=== PATIENT | female | born 1950 | race Caucasian/White ===

== ENCOUNTER → 2018-09-19 13:27 | Outpatient (CLI) | payer OTHER, SELFPAY ==
[2018-09-19 13:42] LABS: Bacteria Urine None Seen; RBC Urine None Seen (0-5/HPF); WBC Urine None Seen (0-5/HPF)
[2018-09-19 14:51] LABS: Add Manual Diff / Slide Review NO; Basophils Absolute Auto 100 /uL (0-100); Basophils Percent Auto 1.2 % (0-2); Eosinophils Absolute Auto 100 /uL (0-450); Eosinophils Percent Auto 2.7 % (2-4); Hematocrit 32.5 % (36-46); Hemoglobin 10.8 g/dL (12.0-16.0); Lymphocytes Absolute Auto 800 /uL (1100-4500); Lymphocytes Percent Auto 16.6 % (25-40); Mean Corpuscular HGB Conc 33.1 % (30-36); Mean Corpuscular Volume 102.8 fL (80-100); Monocytes Absolute Auto 500 /uL (0-900); Monocytes Percent Auto 9.8 % (3-14); Neutrophils Absolute Auto 3200 /uL (1500-7000); Neutrophils Percent Auto 69.7 % (50-75); Platelet Count 228 X10^3/uL (150-400); Red Blood Cell Count 3.16 X10^6/uL (4.0-5.2); Red Cell Distribution Width 13.4 % (11.6-14.8); White Blood Cell Count 4.7 X10^3/uL (4.5-11.0)
[2018-09-19 16:34] LABS: Appearance Urine UA CLEAR; Bilirubin Urine UA NEGATIVE (NEGATIVE); Color Urine UA YELLOW; Glucose Urine UA NEGATIVE (Negative); Ketones Urine UA NEGATIVE (NEGATIVE); Leukocyte Esterase Urine UA NEGATIVE (NEGATIVE); Nitrite Urine UA NEGATIVE (Negative); Occult Blood Urine UA NEGATIVE (Negative); Protein Urine UA NEGATIVE (Negative); Urobilinogen Urine UA 0.2 E.U./dL (0.2); pH Urine UA 7.5 (4.5-8.0)
[2018-09-19 16:54] LABS: Culture Indicated Urine Cult Not Indicated
[2018-09-19 17:14] LABS: Blood Urea Nitrogen 39 mg/dL (7-17); Calcium 9.8 mg/dL (8.4-10.2); Carbon Dioxide 31 mmol/L (22-32); Chloride 103 mmol/L (98-107); Estimated Glomerular Filt Rate > 60.0 mL/min (>60); Glucose 108 mg/dL (80-110); HEMOLYSIS < 15 (0-50); Potassium 4.8 mmol/L (3.4-5.1); Sodium 141 mmol/L (137-145)
== END ==
PROVIDERS: Visit Provider Orthopaedic Surgery
DX: Z01.818 Encounter for other preprocedural examination (principal); Z01.812 Encounter for preprocedural laboratory examination; N39.9 Disorder of urinary system, unspecified; Z13.1 Encounter for screening for diabetes mellitus; R73.9 Hyperglycemia, unspecified
CPT/HCPCS: 36415; 80048; 81001; 83036; 85025; 93005

== ENCOUNTER → 2018-10-25 12:14 | Outpatient (CLI) | payer OTHER, SELFPAY ==
[2018-10-25 12:54] LABS: Hematocrit 30.2 % (36-46); Hemoglobin 10.2 g/dL (12.0-16.0); Mean Corpuscular HGB Conc 33.8 % (30-36); Mean Corpuscular Hemoglobin 34.5 PG (26-34); Platelet Count 278 X10^3/uL (150-400); Red Blood Cell Count 2.96 X10^6/uL (4.0-5.2); Red Cell Distribution Width 13.3 % (11.6-14.8); White Blood Cell Count 4.2 X10^3/uL (4.5-11.0)
[2018-10-25 13:28] LABS: Blood Urea Nitrogen 27 mg/dL (7-17); Calcium 9.8 mg/dL (8.4-10.2); Carbon Dioxide 32 mmol/L (22-32); Chloride 101 mmol/L (98-107); Estimated Glomerular Filt Rate > 60.0 mL/min (>60); Glucose 159 mg/dL (80-110); HEMOLYSIS < 15 (0-50); Potassium 4.1 mmol/L (3.4-5.1); Sodium 139 mmol/L (137-145)
== END ==
PROVIDERS: PCP Family Medicine; Visit Provider Physician Assistant Surgical
DX: Z01.818 Encounter for other preprocedural examination (principal)
CPT/HCPCS: 36415; 80048; 85027

== ENCOUNTER 2018-11-29 09:56 | Inpatient (IN) | payer OTHER, SELFPAY ==
[2018-11-16 09:50] VITALS: BMI 20.4
[2018-11-29] VITALS (14 sets, daily range): BP systolic 133–204; BP diastolic 57–98; PULSE 48–70; RESP 12–16; TEMP 35.8–37.2; O2SAT 94–100; BMI 20.8
--- NOTE | 2018-11-29 | DI.RAD.S_ITS ---
PROCEDURE: XR PELVIS 1-2V INDICATIONS: INNER OP TECHNIQUE: Intra-operative view of the pelvis and hip acquired. COMPARISON: [facility], CR, XR HIP W PEL IF DONE RT 2V, 11/29/2018, 16:22. FINDINGS: Bones: Intraoperative devices prior to placement of arthroplasty prostheses are in expected positions. No fractures or suspicious bony lesions. Soft tissues: Overlying surgical retractors are present, along with other intraoperative changes. IMPRESSION: Fluoroscopy guidance was provided intraoperatively for right hip arthroplasty. Dictated by: Gian Pandey M.D. on 11/29/2018 at 16:38 Approved by: Gian Pandey M.D. on 11/29/2018 at 16:38
--- NOTE | 2018-11-29 06:00 | DI.RAD.S_ITS ---
PROCEDURE: XR HIP W PEL IF DONE RT 2V INDICATIONS: post op films TECHNIQUE: AP pelvis and lateral view of the right hip acquired. COMPARISON: None. FINDINGS: Bones: Patient is status post right hip arthroplasty, with hardware components in expected positions. The hip joint appears congruent. The visualized bony structures appear intact. Soft tissues: Overlying postoperative changes are noted. No suspicious soft tissue densities. IMPRESSION: Post surgical changes from right total hip arthroplasty with anatomic right hip alignment. Dictated by: Gian Pandey M.D. on 11/29/2018 at 17:45 Approved by: Gian Pandey M.D. on 11/29/2018 at 17:45
[2018-11-29] MEDS: LACTATED RINGERS 1,000 ML 42 ML IV ×2 (10:30→15:50)
[2018-11-29] MEDS: VANCOMYCIN 1,000 MG/200 ML PIGGYBACK 200 MG IV (10:35)
[2018-11-29] MEDS: ACETAMINOPHEN 325 MG TABLET 975 MG PO ×2 (10:36→21:29)
[2018-11-29] MEDS: PREGABALIN 75 MG CAPSULE PO (10:37)
[2018-11-29] MEDS: CELECOXIB 200 MG CAPSULE PO (10:37)
--- NOTE | 2018-11-29 10:45 | PM.PREOP ---
Pre-operative Note Interval Note History & Physical reviewed/Exam performed by Physician: Yes Changes to H&P: No
--- NOTE | 2018-11-29 10:45 | PM.OP.1 ---
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 Non-operative management has failed and the patient has requested total hip replacement. The risks, benefits and alternatives to surgery were discussed with the patient prior to proceeding. Risks discussed included, but were not limited to, failure to relieve pain, leg length discrepancy, dislocation, stiffness, infection, nerve damage, deep venous thrombosis, pulmonary embolism, stroke, coma, heart attack, permanent paralysis and , as well as the potential need for eventual revision of the prosthetic. Surgeon: Alyse Flores [employer] Equipment Repairer: Haider Romano Anesthesia Type: General and Spinal Operative Notes Findings: Severe right hip osteoarthritis and avascular necrosis with severe fragmentation and collapse of the femoral head marked capsular synovitis with multiple fragments of the femoral head crumbled and impregnated in the capsule Closure Type: primary Specimen(s): none sent Prosthetic devices, grafts, tissues, transplants, or devices: Flores and Nephew size 7 standard offset anthology, 52 mm R3 cup, 52 x 36 mm liner, 36 by -3 femoral head Oxinium Estimated Blood Loss (mL): 250 Blood products transfused: none Procedure in detail: The patient was brought to the operating room. Patient was carefully positioned in the supine position. Time-out was performed and antibiotics were given. Anesthesia was induced. She was positioned in the on the table in order to allow hyperextension of the hip. The right lower extremities was prepped and draped in a standard sterile fashion. An anterior right hip incision was made 1 fingerbreadth lateral to the anterior superior iliac spine and extended distally towards the greater trochanter. Dissection was carried out through skin and subcutaneous tissues. The skin and subcutaneous tissues were carefully injected with Lidocaine with epi. Superficial hemostasis was achieved. The fascia over the tensor fascia davion was defined and incised with a knife. Two Allis clamps were used to grasp the fascia. Tensor fascia davion was retracted laterally. A gelpi retractor was placed. Dissection was carried out down along the neck. The circumflex vessels were carefully identified and cauterized with the Aqua Mantis. There was good visualization of the femoral neck. A Cobra was placed superior to the neck and the gluteus fibers were carefully stripped from that superior aspect of the capsule. A 2nd retractor was placed along the inferior aspect of the neck. The rectus insertion along the capsule was partially released. A 3rd retractor that was then gently placed over the rim of the acetabulum under the rectus. Capsule was carefully incised and released from the intertrochanteric line circumferentially superior to the mid sagittal line and inferiorly to the mid sagittal line until the lesser trochanter was palpable. A tag stitch was placed both in the superior and inferior limb of the capsular insertion. Along the acetabulum capsule was also released up to the mid sagittal 12:00 position. There was severe fragmentation of the femoral head. There was marked inflammation and thickening of the anterior capsule and the capsule was grossly and densely adherent to the femoral head and multiple multiple fragments of the head had broken off and were impregnated in the capsule. Dissection and mobilization was tedious due to the level of inflammation and the severe debris formation. A portion of the labrum was resected. A saw was used to perform an osteotomy at the level of the intertrochanteric line and the junction of the superior femoral neck leaving approximately 1 finger breath of residual inferior neck above the lesser trochanter. A 2nd cut was made along the femoral neck at the base of the head and a napkin ring of neck was removed. Corkscrew was placed in the femoral head and the head was removed after removing some fragmented residual head pieces as well as meticulously freeing the densely adherent capsule which had adhered along the neck portion as well as multiple fragments of the head. Retractors were then repositioned around the acetabulum. The acetabulum was significantly softened making dissection tedious and we were very cautious with our retractors to avoid injury to the residual somewhat deficient and quite soft acetabulum. Residual labrum was resected and additional osteophytes were removed. A reamer that was 4 mm below the templated size was placed by hand in the acetabulum and it was reamed to centralize the acetabulum. It was then reamed up to 2 under the templated size and fluoroscopy was brought in to confirm the position of the reaming and depth of reaming. Multiple additional fragments of femoral head were removed and any additional grossly abnormal capsule was carefully removed. I reamed 1 under the anticipated size. A trial cup was placed and noted that it was appropriately sized and fluoroscopy confirmed position and depth. The component was open and inserted without difficulty fluoroscopic imaging was used to confirm that the cup had been adequately seated and was well positioned. She had a very soft acetabulum and a supplemental screw was used to further stabilize the cup. The cup was noted to be stable. Neutral poly liner was placed. The cup was tested and noted to be stable. Attention was then directed to the femur. The femur was gently hyperextended additional capsular release was performed as needed in order to allow adequate visualization of the proximal femur with elevation of the femur. Patient was placed in a hyperextended slightly adducted position with maximum external rotation. Box osteotome was used to check for any residual neck as well as sclerotic bone along the trochanter. Fertile pepper was placed in the femur. Additional broaching was performed. Canal finder was used to determine the alignment of the canal and position. Size 1 broach was placed. The canal was then appropriately broached up to the templated size as long as there was adequate stability of the broach and serial advancement of the broach without excessive impingement. Specific attention was directed at avoiding varus attempting to direct the distal aspect of the broach more anteriorly and avoiding excessive anteversion. Trial reduction showed acceptable range of motion, good stability, no posterior impingement, restorationist of leg length and appropriate lateral shuck. I also hyperflexed the hip and checked that there was no impingement anteriorly and there was good stability with flexion, adduction and internal rotation. Marcaine and Exparel were injected. The stem was placed without difficulty. Repeat trial reduction and x-ray showed acceptable overall position, length, and no evidence of the femoral fracture. Final head was placed. Wound was meticulously irrigated with normal saline. The hip was reduced and additional Exparel and Marcaine were injected. The capsule was closed with interrupted nonabsorbable sutures. The fascia of the tensor was closed with interrupted and running Vicryl. No drain was placed. Any tensor fascia davion muscle that appeared to be contused or injured which was a minimal amount was carefully resected. Capsule around the tensor was injected with Exparel and Marcaine. The skin was closed with barbed stitches for the subcutaneous tissue and skin. We also used surgical glue. The wound was dressed sterilely. Brief Betadine soak was also used and was meticulously irrigated with normal saline. Patient was transferred to recovery room in satisfactory condition. Complications: none Condition: stable Disposition: Acute Care Plan for aftercare: The patient will be maintained on a standard total hip replacement protocol with weight bearing as tolerated and anterior hip precautions. The patient will receive Aspirin and sequential compression devices for DVT prophylaxis. The patient will be discharged home when safe for the home environment.
--- NOTE | 2018-11-29 10:54 | SUR.PREOP ---
SPOKE WITH DR. SALGADO REGARDING PT CURRENT WEIGHT IN REGARDS TO CURRENT ORDER FOR ANCEF [address] SALGADO CONTINUE WITH CURRENT PLAN FOR ANCEF 2 GRAMS. COMMUNICATED THIS WITH CIRCULATING RN.
--- NOTE | 2018-11-29 11:02 | SUR.PREOP ---
PT BROUGHT INSULIN FROM HOME. CALLED PHARMACY AND JENNIFER FROM PHARMACY CAME AND PICKED UP PT INSULIN.
[2018-11-29] MEDS: INSULIN ASPART 100 UNIT/ML 10ML VIAL SUBCUT (11:07)
--- NOTE | 2018-11-29 11:21 | SUR.PREOP ---
PT ADMINISTERED INSULIN HERSELF. PT OBSERVED TO ADMINISTER INSULIN IN LEFT LOWER ABDOMEN.
[2018-11-29] MEDS: CEFAZOLIN 2 GM/100 ML FROZ.PIGGY IV ×2 (11:45→20:16)
[2018-11-29] MEDS: BUPIVACAINE LIPOSOME 266 MG/20 ML VIAL INJ (12:52)
[2018-11-29] MEDS: POVIDONE-IODINE 15 ML, SODIUM CHLORIDE 0.9% 250 ML TOP (12:53)
[2018-11-29] MEDS: BUPIVACAINE 0.25% W/ EPI 30 ML VIAL 60 ML INJ (12:53)
[2018-11-29] MEDS: TRANEXAMIC ACID 1,000 MG VIAL 1000 MG INJ ×2 (12:55→15:57)
--- NOTE | 2018-11-29 13:07 | PC.NURSE ---
Day shift: Pt not on AC unit at this time
[2018-11-29] MEDS: LACTATED RINGERS 1,000 ML 125 ML IV (17:04)
[2018-11-29] MEDS: ONDANSETRON 4 MG/2 ML INJ IV ×2 (17:33→23:41)
--- NOTE | 2018-11-29 18:40 | PC.NURSE ---
Addendum entered by Liz Hanna R.N. 11/29/18 20:57: Pt resting at intervals. Continues w/some nausea w/ small emesis Dsg remains CDI Voiing per bedpan clear yellow urine. Stable post op course. Call light w/in reach, bed alarm on for pt safety. Continue w/plan of care. Original Note: Pt arrived from PACU at 1700. Awake/drowsy. Some nausea upon arrival, Zofran given. IVF infusing into RAC via pump as per orders. Call light w/in reach, bed alarm on for pt safety.
[2018-11-29] MEDS: METOCLOPRAMIDE 10 MG/2 ML INJ IV (18:54)
[2018-11-29] MEDS: LISINOPRIL 10 MG TABLET PO (19:00)
--- NOTE | 2018-11-29 19:47 | PM.HP.1 ---
History of Present Illness Date Patient Seen: 11/29/18 Time Patient Seen: 19:36 Chief complaint: 26424 RIGHT ANTERIOR KATHERINE Narrative: Ms. Melody Weems is a 68-year-old female patient with a history significant for diabetes, osteoporosis and severe right hip osteoarthritis who underwent a right total hip arthroplasty by Dr. Flores today. The hospitalist service has been asked to consult to assist in managing her diabetes. The patient has had increasing right hip pain with increasing debility for approximately the last year. She has failed conservative treatment and underwent a right total hip arthroplasty through an anterior approach today. Prior to the surgery the patient has been in good health with excellent management of her diabetes with her last hemoglobin A1c 09/19/2018 of 6.0. Her regimen includes Toujeo 11 of 13 units each evening and correctional lispro insulin. The patient has no associated complications of retinopathy neuropathy or nephropathy. At the time encounter the patient is awake and alert but complains of nausea. She has had undergone general anesthetic previously for elbow reconstruction following fall without complications. Postoperatively the patient was hypertensive with blood pressure up to 204/96 without history of hypertension. Is noted that the patient had markedly elevated BUN creatinine ratio preoperatively of 65 with preserved renal function with a creatinine of 0.6. At the time of encounter the patient's blood pressure is 192/89 with heart rate of 70, respirations 16 and oxygen saturation of 94% on air. She denies complaints of headaches or double vision does report mild dizziness which she attributes to her pain medication. She denies chest pain or palpitations and has no shortness of breath cough or wheezing. She has no abdominal tenderness but has had postoperative nausea and vomiting treated with Zofran. She has no complaints of diarrhea or dysuria. She indicates she was experimenting with [id number] stool softener prior to surgery. The patient has complained of bilateral leg swelling increasing through the day that will go down at night. Patient History Medical History Bradycardia (Acute) Dermatitis (Acute) Diabetes (Acute) Fracture of left clavicle (Acute) Raynaud's disease (Acute) Primary osteoarthritis of right hip (Chronic) Psoriasis (Chronic) Surgical History History of total right hip arthroplasty (Acute) Hx of elbow surgery (Acute) Social History household members: none Smoking Status: Never smoker alcohol intake: current Family & Social History Social History: household members none Prior Living Arrangements House Safety & Behavioral: Feels Safe in Current Yes Environment Been Physically Hurt or No Threatened By a Person Suicidal Ideation Description None Suicide Plan Description No Plan Tobacco & Substance use: Smoking Status Never smoker alcohol intake current alcohol intake frequency holiday/special occasion Substance Use Type does not use Comment: The patient currently lives alone in a two-story home with 15 steps to the upper floor and her bedroom. She is with her passing away 2 years ago. Smoking: Patient has never smoked. Alcohol: Patient denies alcohol consumption. Substance use: Patient denies recreation pharmaceuticals, herbal or cannabis use. Advanced directives: In direct conversation with the patient she expresses her wishes to be a FULL CODE but indicates her desire not to have long-term life support. She has advanced directives on file and designates Jerri Bach or her brother Bill to be surrogate decision makers. Meds Home Medications Medication Instructions Recorded Confirmed Type acetaminophen [Tylenol Extra 1,000 mg PO QID 11/16/18 11/29/18 History Strength] insulin glargine U-300 conc 11 - 13 unit SUBCUT QPM 11/16/18 11/29/18 History [Toujeo Max U-300 SoloStar] insulin lispro [Humalog KwikPen 2 - 3 unit SUBCUT TID 11/16/18 11/29/18 History Insulin] naproxen sodium [Aleve] 220 mg PO Q OTHER DAY 11/16/18 11/29/18 History melatonin 2 mg PO BEDTIME PRN 11/29/18 11/29/18 History Allergies Allergy/AdvReac Type Severity Reaction Status Date / Time No Known Drug Allergies Allergy Verified 11/29/18 10:28 Review of Systems Review of Systems All systems reviewed & are unremarkable except as noted in HPI and below Exam Vital Signs (past 8 hours): - 11/29/18 16:15 11/29/18 16:20 11/29/18 16:25 Temperature 97.0 F L Pulse Rate 52 L 49 L 49 L Respiratory Rate 12 12 12 Blood Pressure 133/57 L 135/65 137/65 Pulse Oximetry 96 99 96 11/29/18 16:30 11/29/18 16:40 11/29/18 16:50 Temperature 96.4 F L Pulse Rate 48 L 52 L 51 L Respiratory Rate 12 12 14 Blood Pressure 150/70 H 155/71 H 190/83 H Pulse Oximetry 97 97 94 11/29/18 17:20 11/29/18 17:36 11/29/18 17:50 Temperature 96.4 F L 96.5 F L Pulse Rate 56 L 54 L 65 Respiratory Rate 15 14 16 Blood Pressure 181/98 H 204/96 H Pulse Oximetry 95 94 96 11/29/18 18:50 Temperature 96.9 F L Pulse Rate 70 Respiratory Rate 16 Blood Pressure 192/89 H Pulse Oximetry 94 Oxygen Delivery Method Room Air Oxygen Flow Rate 0 Narrative Exam Narrative: GENERAL APPEARANCE: well developed, well nourished, in no acute distress. HEAD: Normocephalic, atraumatic, no scalp lesions. EYES: pupils equal, round, reactive to light and accommodation, sclera non-icteric, extraocular movement intact without nystagmus. EARS: normal external structures, no ear pain NOSE: sinuses non tender to percussion, no rhinorrhea ORAL CAVITY: Mucous membranes are dry without lesions or exudate, palate normal, tongue in midline. THROAT: Posterior pharynx without inflammation, uvula midline. NECK/THYROID: neck supple, no jugular venous distention, no carotid bruit, no thyromegaly, trachea midline. LYMPH NODES: no cervical or supraclavicular lymphadenopathy. SKIN: warm and dry, no visible lesions or rashes, good turgor. HEART: regular rate and rhythm, S1-S2 1/6 systolic murmur over right upper sternal border, no rubs or gallops, brisk capillary refill, trace bilateral pedal edema LUNGS: clear to auscultation bilaterally, no coarseness crackles or wheezing, no cough present CHEST: Symmetrical movement, no accessory muscle use, no pain to AP and lateral compression. ABDOMEN: Soft, flat without distention, no epigastric or abdominal tenderness on palpation, no guarding or peritoneal signs, no organomegaly, no flank tenderness, hypo active bowel tones. EXTREMITIES: Surgical dressing right anterior hip, distal CMS intact, bilateral upper extremity strength is 5/5 and symmetrical NEUROLOGIC: AAO x4, no focal neurologic deficits, cranial nerves II-XII grossly intact , motor strength normal upper and lower extremities, sensory exam intact to light monofilament touch, hearing grossly normal to speech. PSYCH: alert, cognitive function intact, good eye contact, appropriate with stable behavior Assessment & Plan Assessment & Plan narrative: The hospital services been asked to consult for medical management of the patient's type 2 diabetes following right anterior total hip replacement by Dr. Flores. 1. Chronic primary osteoarthritis right hip, present on admission. -patient admitted for for planned surgery following increased debilitation and pain right hip. -status post right total hip arthroplasty by Dr. Alyse Flores today. -patient with postoperative nausea effectively managed with Zofran. -follow-up care under the direction of Dr. Flores. -IV lactated Ringer's increased to 150 cc an hour for dehydration and BUN creatinine ratio of 45:1. 2. Type 2 diabetes, insulin-dependent, controlled, active. -patient with uncomplicated diabetes with no neuropathy retinopathy or nephropathy. -last hemoglobin A1c on 09/19/2018 was 6.0. -constant carbohydrate diet to advance as tolerated, patient with poor oral intake related to nausea. -fingerstick glucose monitoring a.c. HS. -basal insulin with Toujeo decreased to 7 units tonight with correctional insulin per low-dose scale. -monitor for signs and symptoms of hypoglycemia. 3. Acute Elevated blood pressure without diagnosis of hypertension, active. -at the time of consult the patient's blood pressure was 192/89 decreased from 204/96. -patient without history of hypertension is on no antihypertensive medications. -she has no complaints of headaches, chest pain, palpitations or shortness of breath. -patient is dehydrated, normal saline is increased 150 cc/hour with preserved renal function with a creatinine of 0.6 an elevated BUN of 27. -lisinopril 10 mg p.o. daily -will trend blood pressures. 4. Aortic systolic ejection murmur, chronic, active. -patient endorses history of being told she has heart murmur but has not had any follow-up cardiac evaluation. -no complaints of chest pain, palpitations or shortness of breath. -no report of orthopnea, history of bilateral pedal edema increasing through the day diminishing at night. -patient receiving lactated Ringer's at 150 cc/hour will monitor fluid balance and edema. -condition appears stable at this time, and may be followed up on outpatient basis. 5. Osteoporosis, chronic, presumed stable -patient is postmenopausal with osteoporosis by history, no DEXA scan report is available for review to identify severity. -recommended continuation of calcium and vitamin D3 supplementation. -additional management per primary care provider. Thank you Dr. Flores for the pleasure of consulting on this pleasant patient. Scores GCS [place] coma scale eye opening: Spontaneous [place] coma scale verbal response: Orientated [place] coma scale motor response: Obey commands Narendra coma scale total score: 15
[2018-11-29] MEDS: INSULIN ASPART 100 UNIT/ML INSULN PEN SUBCUT (20:22)
[2018-11-29] MEDS: ASPIRIN EC 81 MG TABLET PO (21:30)
--- NOTE | 2018-11-30 00:21 | PC.NURSE ---
2300- Pt POD#0 R total hip w/ Aquacel drsg CDI; bilat SED's in place' fluids running as ordered; cont SpO2 in place. Pt severely hypertensive when returned to floor from PACU, hospitalist consulting regarding this. BP stable at the start of this RN's shift. However, with movement in bed she has 1 episode of emesis. IV Zofran given and BG checked per pt's request. BG 248. Will cont to monitor. 0400- Pt cont to use bedpan through the night. IV abx hung per orders. No emesis through the night
[2018-11-30] MEDS: LACTATED RINGERS 1,000 ML 125 ML IV (01:34)
[2018-11-30 03:57] VITALS: BP 134/54; PULSE 62; RESP 15; TEMP 36.8; O2SAT 99
[2018-11-30] MEDS: CEFAZOLIN 2 GM/100 ML FROZ.PIGGY IV (04:11)
[2018-11-30] MEDS: INSULIN ASPART 100 UNIT/ML INSULN PEN SUBCUT ×6 (04:15→19:49)
[2018-11-30 06:18] LABS: Hematocrit 26.8 % (36-46)
[2018-11-30 06:25] LABS: Blood Urea Nitrogen 18 mg/dL (7-17); Calcium 8.7 mg/dL (8.4-10.2); Carbon Dioxide 29 mmol/L (22-32); Chloride 99 mmol/L (98-107); Estimated Glomerular Filt Rate > 60.0 mL/min (>60); Glucose 263 mg/dL (80-110); HEMOLYSIS < 15 (0-50); Potassium 3.8 mmol/L (3.4-5.1); Sodium 134 mmol/L (137-145)
[2018-11-30 07:20] VITALS: BP 140/61; PULSE 61; RESP 16; TEMP 37.3; O2SAT 97
--- NOTE | 2018-11-30 07:32 | PM.PNPO.1 ---
Subjective Date Patient Seen: 11/30/18 Time Patient Seen: 07:32 Interval history: Patient's pain is mild. Denies fever chills. No nausea vomiting. She slept fairly well through the night. Otherwise without complaints. Exam Vital Signs (past 8 hours): - 11/29/18 23:44 11/30/18 03:57 Temperature 98.0 F 98.2 F Pulse Rate 63 62 Respiratory Rate 16 15 Blood Pressure 150/75 H 134/54 L Pulse Oximetry 96 99 Oxygen Delivery Method Room Air Oxygen Flow Rate 0 Narrative Exam Narrative: Pleasant 68-year-old female resting comfortably in bed in no apparent distress. Right hip dressing is clean, dry and intact. Sensation grossly intact to light touch. Motor function is intact. Right leg is warm and dry. Objective Labs Result Diagrams: 11/30/18 06:00 11/30/18 06:00 Labs: Laboratory Results - last 24 hr 11/30/18 11/30/18 06:00 06:00 Hgb 9.0 L Hct 26.8 L Sodium 134 L Potassium 3.8 Chloride 99 Carbon Dioxide 29 BUN 18 H Creatinine 0.50 L Estimated GFR > 60.0 BUN/Creatinine Ratio 36.0 H Glucose 263 H Calcium 8.7 Assessment & Plan Post-op Postoperative Procedures Operation Date: 11/29/18 12:00 Actual Procedures Side Surgeon p Total Hip Arthroplasty/Anterior Approach Right Alyse Flores MD Postop day 1 status post anterior right total hip arthroplasty. Mobilize with physical therapy. Anterior hip precautions. Aspirin and SCDs for DVT prophylaxis. Hospitalist consulted for hypertension and diabetes management.
[2018-11-30] MEDS: ACETAMINOPHEN 325 MG TABLET 975 MG PO ×3 (08:13→19:43)
[2018-11-30] MEDS: OXYCODONE IR 5 MG TABLET PO (08:13)
[2018-11-30] MEDS: ASPIRIN EC 81 MG TABLET PO ×2 (08:14→19:46)
[2018-11-30] MEDS: LISINOPRIL 10 MG TABLET PO (08:15)
[2018-11-30] MEDS: DOCUSATE 100 MG CAPSULE PO ×2 (08:15→19:46)
--- NOTE | 2018-11-30 09:20 | PT.IIE ---
Current Diagnoses Unilateral primary osteoarthritis, right hip (11/29/18) Surgery Performed Operation Date: 11/29/18 12:00 Actual Procedures p Total Hip Arthroplasty/Anterior Approach(Right) - Alyse Flores MD Surgical History (Last Reviewed 11/29/18 @ 20:00 by KENISHA Márquez) History of total right hip arthroplasty (Acute) Hx of elbow surgery (Acute) Medical History (Last Reviewed 11/29/18 @ 20:00 by KENISHA Márquez) Bradycardia (Acute) Dermatitis (Acute) Diabetes (Acute) Fracture of left clavicle (Acute) Raynaud's disease (Acute) Primary osteoarthritis of right hip (Chronic) Psoriasis (Chronic) Physical Therapy Inpatient Evaluation/Re-Eval M1 PT/OT-IP Prior Functional Status Start: 11/30/18 12:51 Freq: NEEDED Status: Active Protocol: Document 11/30/18 09:20 AB (Rec: 11/30/18 13:27 AB [id number]) Medical Review Prior Functional Status Medical History Reviewed Yes Communication pt able to make needs known but with confusion Mobility and Gait pt stated that she is independent with all mobilities and ambulation without AD Social History Household Members none Living Arrangements House Number of Floors (Floors) Two Floors Number of Stairs To Enter/Railing? pt does not have any steps to enter pt has 15 steps to get to bedroom level; first half has bilateral rails and 2nd half has L rail ascending Home Environment High Toilet Walk in Shower Home Equipment Front Wheel Walker Straight Cane Shower Seat without Backrest Hand Held Shower Grab Bars In Shower Employment Status Retired Additional Social History Comment pt has walking sticks M2 PT-IP Current Condition Start: 11/30/18 12:51 Freq: NEEDED Status: Active Protocol: Document 11/30/18 09:20 AB (Rec: 11/30/18 13:27 AB [id number]) Physical Therapy Current Condition Current Condition Evaluation Date 11/30/18 Treatment Diagnosis s/p R KATHERINE anterior approach; difficulty in walking Onset Date 11/29/18 Precautions Anterior Hip Precautions No Hip Extension No Hip External Rotation Weight Bearing Status Weight Bearing Status Weight Bear as Tolerated M3 PT-IP Subjective Start: 11/30/18 12:51 Freq: NEEDED Status: Active Protocol: Document 11/30/18 09:20 AB (Rec: 11/30/18 13:27 AB [id number]) Subjective Physical Therapy Visit Type Type Initial Evaluation Visit Start Time 09:20 Visit Stop Time 10:15 Total Visit Minutes 55 Number of HEATING WORKER Visits 0 Physical Therapy Visit Comments Patient Comments pt agreed to do PT Therapy Pain Assessment Pain When Pain Assessed At Rest Pain Present Pain Present Pain Reported Location right hip Intensity 6 Scale Used Numeric (1 - 10) Pain Management Techniques Apply Cold Re-positioning Timing of Activity with Medications M4 PT-IP Mobility and Gait Start: 11/30/18 12:51 Freq: NEEDED Status: Active Protocol: Document 11/30/18 09:20 AB (Rec: 11/30/18 13:27 AB [id number]) PT-Bed Mobility Assessment Supine to Sit Supine to Sit Standby Assistance PT-Transfer Assessment Sit to and From Stand Sit to and from Stand Moderate Assistance 1 Person Assistance Use of Upper Extremities Equipment Transfer Assistive Device Bed Rail Front Wheeled Walker Orthotic/Prosthetic Devices or Brace: No Transfers Transfer Destination Chair Transfer Technique pt ambulated using FWW Transfer Ability Level of Assist Moderate Assistance 1 Person Assistance Use of Upper Extremities Comments Mobility Comments pt requires max cues with all tasks and to maintain hip precautions. pt is with confusion and requires step by step cues. Gait Assessment Gait Gait Assistance Required: Moderate Assistance 1 Person Assist Distance (Feet) 15 Able to Maintain Weight Bearing Status Yes During Gait Assistive Devices Assistive Device Gait Belt Front Wheeled Walker Orthotic/Prosthetic Devices or Brace: No Gait Deviations General Gait Pattern Antalgic Decreased Stride Length Decreased Feet Clearance Factors Limiting Gait Function Factors Limiting Gait Function Decreased Activity Tolerance Decreased Strength Difficulty Following Directions Pain Poor Balance Poor Safety Awareness PT-Balance Assessment Sitting Balance and Reactions Static Sitting Balance Ability Good Dynamic Sitting Balance Ability Good Standing Balance and Reactions Static Standing Balance Ability Fair Dynamic Standing Balance Ability Fair Device Used FWW M5 PT-IP Objective Assessments Start: 11/30/18 12:51 Freq: NEEDED Status: Active Protocol: Document 11/30/18 09:20 AB (Rec: 11/30/18 13:27 AB [id number]) Orientation Orientation/Cognition Level of Alertness Confusional State Orientation Name Age Year Place Situation Safety Awareness Decreased Safety Awareness Memory Description Short Term Impaired Nursing Home Impaired Gross Range of Motion Lower Extremity ROM Assessment Within Functional Limits Strength Lower Extremity Strength Assessment Right Impaired Hip 3/5 Knee 3/5 Coordination Assessment Gross Coordination Gross Coordination WNL Sensation Assessment Sensation Gross Sensation WNL Muscle Tone Muscle Tone WNL Yes M6 PT-IP Treatment Start: 11/30/18 12:51 Freq: NEEDED Status: Active Protocol: Document 11/30/18 09:20 AB (Rec: 11/30/18 13:27 AB [id number]) Physical Therapy Treatment Exercises Exercises Quad Sets Heel Slides Education Education Provided Precautions Weight Bearing Status Post-Op Packet Safety M7 PT-IP Assessment and Plan Start: 11/30/18 12:51 Freq: NEEDED Status: Active Protocol: Document 11/30/18 09:20 AB (Rec: 11/30/18 13:27 AB [id number]) PT Summary Assessment and Plan Potential Rehabilitation Potential Good Status of Condition at Evaluation Evolving Summary Impairments Pain ROM Strength Balance Coordination Sensation Tone Cognition Bed Mobility Transfers Gait Activity Tolerance Assessment Summary pt requiring mod A with mobility and max cues with all tasks. pt has decrease safety awareness and unable to maintain hip precautions. pt does not have much support at home and will only have somebody for the first 2-3 days to assist her. pt will need SNF rehab to improve mobility and independence. Goals Bed Mobility Goal Independent Transfer Goal Standby Assistance Front Wheeled Walker Gait Goal Standby Assistance Front Wheel Walker Gait Distance 150 Other Goals up/down 7 steps with bilateral rails + 8 steps with L rail ascending SBA Days to Meet Goals 5 Frequency of Treatment Frequency Of Treatment Twice a Day Treatment Plan Physical Therapy Treatment Plan Bed Mobility Training Transfer Training Gait Training Therapeutic Exercise Balance Retraining Post Op Education Discharge Planning Hot or Cold Pack Neuromuscular Re-ed Coordination Retraining Manual Therapy Other Recommendations and Next Treatment ambulation Focus Recommendations To Nursing Amount of Assist Needed 1 Person Assist Discharge Recommendations PT Discharge Recommendations SNF Rehab
--- NOTE | 2018-11-30 10:00 | PC.NURSE ---
Addendum entered by Jerri Guadalupe R.N. 11/30/18 14:17: PAIN/CONFUSION - discussed medications with pt for afternoon phys therapy, given 975mg po tylenol now for mobilization, pt will hold off oxycodone and prefers to have at bedtime, discussed naproxen and declines for now. Addendum entered by Jerri Guadalupe R.N. 11/30/18 14:06: MS - pt up indep w/bed alarm sounding, ambul into br and voided, did dribble floor on way in, pt needed direction, impulsive and continued ambul in room after advising pt to sit while wet floor cleaned, redirected pt to chair w/alarm set, phys therapy notified as pt wanted to ambul for mobilization. Original Note: AM NOTE - pt is alert, mildly anxious, states r hip discomfort 5-6 on scale 0/10 this am, + sensation feet, denies numbness, anterior aquacell r hip cdi, ice pack to hip, discussed pain medications, given scheduled tylenol, tony gen diet this am, denies nausea, given 5mg oxycodone after meal for mobilization.
[2018-11-30 11:47] VITALS: BP 126/61; PULSE 59; RESP 16; TEMP 37.1; O2SAT 98
--- NOTE | 2018-11-30 12:52 | PM.PN.1 ---
Subjective Date Patient Seen: 11/30/18 Interval history: Patient postop day #1 status post right hip replacement. She had postop severe hypertension and started on lisinopril. Blood pressures have substantially improved with last BP 126/61. Patient states blood pressures at home are typically below 120 systolic and she has not been told she needs blood pressure lowering medication. Her blood sugars are running substantially elevated in the 300 range postop on reduced dosage of her basal insulin. She is historically well controlled with the last hemoglobin A1c of 6.0%. In fact she gets sugars as low as 70 at home and her campus administrative assistant has mentioned to her she may be over controlled. Exam Vital Signs (past 8 hours): - 11/30/18 07:20 11/30/18 11:47 Temperature 99.1 F 98.8 F Pulse Rate 61 59 L Respiratory Rate 16 16 Blood Pressure 140/61 126/61 Pulse Oximetry 97 98 Oxygen Delivery Method Room Air Oxygen Flow Rate 0 Narrative Exam Narrative: General: Patient is alert, pleasant, well oriented, sitting in chair and in no acute distress Objective Labs Result Diagrams: 11/30/18 06:00 11/30/18 06:00 Labs: Laboratory Results - last 24 hr 11/30/18 11/30/18 06:00 06:00 Hgb 9.0 L Hct 26.8 L Sodium 134 L Potassium 3.8 Chloride 99 Carbon Dioxide 29 BUN 18 H Creatinine 0.50 L Estimated GFR > 60.0 BUN/Creatinine Ratio 36.0 H Glucose 263 H Calcium 8.7 Assessment & Plan Assessment & Plan narrative: This is a 68-year-old female status post elective right hip replacement with postop hyperglycemia and acute hypertension. 1. Type 2 diabetes, insulin-dependent, controlled, active -elevated glucose readings postop although tightly controlled at home -increase basal insulin to 12 units q.p.m., use NovoLog 4 units t.i.d. with meals, continue NovoLog low-dose sliding scale 2. Acute postop hypertension without diagnosis of chronic hypertension -blood pressures have improved -discontinue lisinopril started postop and continue monitoring blood pressures 3. Heart murmur -patient endorses history of being told she has heart murmur but has not had any follow-up cardiac evaluation. -consider outpatient echo 4. Osteoporosis, chronic, presumed stable -patient is postmenopausal with osteoporosis by history, no DEXA scan report is available for review to identify severity. -recommended continuation of calcium and vitamin D3 supplementation. -additional management per primary care provider.
--- NOTE | 2018-11-30 14:12 | CM.DANOTE ---
DCP/Assessment: Reviewed chart. Patient is a 68yr old female admitted to [facility] for right KATHERINE performed by Dr. Flores on 11-29-18. PCP is Yesenia Leo. Primary payor is 1)[facility]. Met with patient explained CM/SW role. Patient sitting in recliner, alert and oriented at time of visit. Patient reports that she hopes to go home at time of d/c. At this time SNF recommended POD#1. Patient anticipates that a few more days in the hospital and she will be strong enough to go home. Spoke with therapy re: the above. They are aware and plan to continue to work with patient closely. Patient has outpatient therapy set up on [facility]. Patient's friend will be helping her at time of d/c. Patient resides on [facility] and lives alone. Patient has friends that she reports can assist her at home. Patient has 15 stairs to get to second floor of residence. Patient hopes to stay on main floor. Patient agreeable for [employer] to provide her name to [facility] if SNF continues to be recommended. However, patient does prefer home. Plus patient's insurance rarely covers SNF for elective orthopedic surgery. P: Anticipate home. Patient will most likely remain hospitalized for a few more days so that she can go home when medically stable. Patient hopeful to leave on Wednesday. Patient will need priority boarding for return to [facility]. CM team to continue to follow closely. ADRIANNA King
--- NOTE | 2018-11-30 14:45 | PT.IPTN ---
Current Diagnoses Unilateral primary osteoarthritis, right hip (11/29/18) Surgery Performed Operation Date: 11/29/18 12:00 Actual Procedures p Total Hip Arthroplasty/Anterior Approach(Right) - Alyse Flores MD Physical Therapy Treatment Note M2 PT-IP Current Condition Start: 11/30/18 12:51 Freq: NEEDED Status: Active Protocol: Document 11/30/18 09:20 AB (Rec: 11/30/18 13:27 AB [id number]) Physical Therapy Current Condition Current Condition Evaluation Date 11/30/18 Treatment Diagnosis s/p R KATHERINE anterior approach; difficulty in walking Onset Date 11/29/18 Precautions Anterior Hip Precautions No Hip Extension No Hip External Rotation Weight Bearing Status Weight Bearing Status Weight Bear as Tolerated M3 PT-IP Subjective Start: 11/30/18 12:51 Freq: NEEDED Status: Active Protocol: Document 11/30/18 14:45 AB (Rec: 11/30/18 15:48 AB [id number]) Subjective Physical Therapy Visit Type Type Treatment Note Visit Start Time 14:45 Visit Stop Time 15:15 Total Visit Minutes 30 Number of RETOUCHER Visits 0 Physical Therapy Visit Comments Patient Comments pt agreeable to do PT Therapy Pain Assessment Pain Present Pain Present Pain Reported Location right hip Intensity 4 Scale Used Numeric (1 - 10) Pain Management Techniques Re-positioning Timing of Activity with Medications M4 PT-IP Mobility and Gait Start: 11/30/18 12:51 Freq: NEEDED Status: Active Protocol: Document 11/30/18 14:45 AB (Rec: 11/30/18 15:48 AB [id number]) Gait Assessment Gait Gait Assistance Required: Moderate Assistance Distance (Feet) 75 Able to Maintain Weight Bearing Status Yes During Gait Assistive Devices Assistive Device Gait Belt Front Wheeled Walker Orthotic/Prosthetic Devices or Brace: No Gait Deviations General Gait Pattern Antalgic Decreased Stride Length Decreased Feet Clearance Factors Limiting Gait Function Factors Limiting Gait Function Decreased Activity Tolerance Decreased Strength Difficulty Following Directions Pain Poor Balance Poor Safety Awareness Comments Gait Comments pt ambulated using FWW 75 + 30 ft requiring mod A and max cues for steadiness and to maintain hip precautions. Pt with (+) R knee buckling x 5 requiring mod A to recover. pt continues to require max A with all tasks and step by step instructions to maintain hip precautions and safety. M5 PT-IP Objective Assessments Start: 11/30/18 12:51 Freq: NEEDED Status: Active Protocol: Document 11/30/18 09:20 AB (Rec: 11/30/18 13:27 AB [id number]) Orientation Orientation/Cognition Level of Alertness Confusional State Orientation Name Age Year Place Situation Safety Awareness Decreased Safety Awareness Memory Description Short Term Impaired [facility] Impaired Gross Range of Motion Lower Extremity ROM Assessment Within Functional Limits Strength Lower Extremity Strength Assessment Right Impaired Hip 3/5 Knee 3/5 Coordination Assessment Gross Coordination Gross Coordination WNL Sensation Assessment Sensation Gross Sensation WNL Muscle Tone Muscle Tone WNL Yes M6 PT-IP Treatment Start: 11/30/18 12:51 Freq: NEEDED Status: Active Protocol: Document 11/30/18 14:45 AB (Rec: 11/30/18 15:48 AB [id number]) Physical Therapy Treatment Education Education Provided Precautions Weight Bearing Status Safety Other Treatments Other Treatment Performed pt remembers her hip precautions but has difficulty remembering and applying during mobility. M7 PT-IP Assessment and Plan Start: 11/30/18 12:51 Freq: NEEDED Status: Active Protocol: Document 11/30/18 14:45 AB (Rec: 11/30/18 15:48 AB [id number]) PT Summary Assessment and Plan Potential Rehabilitation Potential Fair Summary Impairments Pain ROM Strength Balance Coordination Sensation Tone Cognition Bed Mobility Transfers Gait Activity Tolerance Progress Towards Goals Slow Progress due to Activity Tolerance Slow Progress - Other Assessment Summary pt continues to require mod A with mobility and max cues with all tasks. pt with (+) R knee buckling during ambulation and requires constant cues to activate quad ms. pt will require SNF rehab to improve strength and functional independence. Goals Bed Mobility Goal Independent Transfer Goal Standby Assistance Front Wheeled Walker Gait Goal Standby Assistance Front Wheel Walker Gait Distance 150 Other Goals up/down 7 steps with bilateral rails + 8 steps with L rail ascending SBA Days to Meet Goals 5 Frequency of Treatment Frequency Of Treatment Twice a Day Treatment Plan Physical Therapy Treatment Plan Bed Mobility Training Transfer Training Gait Training Therapeutic Exercise Balance Retraining Post Op Education Discharge Planning Hot or Cold Pack Neuromuscular Re-ed Coordination Retraining Manual Therapy Other Recommendations and Next Treatment ambulation Focus Recommendations To Nursing Amount of Assist Needed 1 Person Assist Discharge Recommendations PT Discharge Recommendations SNF Rehab
[2018-11-30 16:30] VITALS: BP 142/59; PULSE 61; RESP 16; TEMP 37.1; O2SAT 98
--- NOTE | 2018-11-30 16:33 | PC.NURSE ---
Addendum entered by Liz Hanna R.N. 11/30/18 21:47: Pt resting quietly at this time. Pt w/episodes of confusion. States discomfort is 2/10 when moving about. Stable post op course. Call light w/in reach, bed alarm on for pt safety. Continue w/plan of care. Original Note: Pt sitting in chair, working w/OT. Denies discomfort at this time. [place] Dsg to anterior right hip CDI Lungs clear, SpO2 96% RA Pt tends to be impulsive at times. Call light w/in reach, chair alarm of for pt safety.
[2018-11-30] MEDS: INSULIN GLARGINE 12 EACH SUBCUT (17:03)
--- NOTE | 2018-11-30 17:37 | OT.IP.EVAL ---
Current Diagnoses Unilateral primary osteoarthritis, right hip (11/29/18) Surgery Performed Operation Date: 11/29/18 12:00 Actual Procedures p Total Hip Arthroplasty/Anterior Approach(Right) - Alyse Flores MD Past Medical History (Last Reviewed 11/29/18 @ 20:00 by KENISHA Márquez) Bradycardia (Acute) Dermatitis (Acute) Diabetes (Acute) Fracture of left clavicle (Acute) Raynaud's disease (Acute) Primary osteoarthritis of right hip (Chronic) Psoriasis (Chronic) Surgical History (Last Reviewed 11/29/18 @ 20:00 by KENISHA Márquez) History of total right hip arthroplasty (Acute) Hx of elbow surgery (Acute) Occupational Therapy Inpatient Evaluation/Re-Eval M1 PT/OT-IP Prior Functional Status Start: 11/30/18 16:38 Freq: NEEDED Status: Active Protocol: Document 11/30/18 16:44 [facility] (Rec: 11/30/18 17:36 [facility] [id number]) Medical Review Prior Functional Status Medical History Reviewed Yes Communication pt able to make needs known but with confusion Mobility and Gait pt stated that she is independent with all mobilities and ambulation without AD Activities of Daily Living and IADL's Pt states was completely independent with ADl's, IADL's , and driving. Social History Household Members none Living Arrangements House Number of Floors (Floors) Two Floors Number of Stairs To Enter/Railing? pt does not have any steps to enter pt has 15 steps to get to bedroom level; first half has bilateral rails and 2nd half has L rail ascending Home Environment High Toilet Walk in Shower Home Equipment Front Wheel Walker Straight Cane Shower Seat without Backrest Hand Held Shower Grab Bars In Shower Employment Status Retired Additional Social History Comment pt has walking sticks Pt states has an air mattress and cot or futon with frame that can be brought into the house so that she can stay on the main level. M2 OT-IP Current Condition Start: 11/30/18 16:38 Freq: Status: Active Protocol: Document 11/30/18 16:44 [facility] (Rec: 11/30/18 17:36 [facility] [id number]) Occupational Therapy Current Condition Current Condition Evaluation Date 11/30/18 Treatment Diagnosis S/p R KATHERINE anterior approach, weakness Diagnosis Onset Date 11/29/18 Post Operative Precautions Anterior Hip Precautions No Hip Extension No Hip External Rotation Weight Bearing Status Weight Bearing Status Weight Bear as Tolerated M3 OT- IP Subjective and Pain Start: 11/30/18 16:38 Freq: Status: Active Protocol: Document 11/30/18 16:44 [facility] (Rec: 11/30/18 17:36 [facility] [id number]) OT- Subjective Occupational Therapy Visit Type Type Initial Evaluation Visit Start Time 15:10 Visit Stop Time 16:10 Total Visit Minutes 60 Occupational Therapy Visit Comments Patient Comments Pt finishing up with PT, and agreeable to work with OT for OT eval. Patient/Caregiver Goals To be able to go home. OT Pain Assessment Pain When Pain Assessed During Mobility Pain Present Pain Present Pain Reported Location right hip Intensity 4 Scale Used Numeric (1 - 10) M4 OT- IP ADL's Start: 11/30/18 16:38 Freq: Status: Active Protocol: Document 11/30/18 16:44 [facility] (Rec: 11/30/18 17:36 [facility] [id number]) OT ADL-Grooming General Evaluation Grooming Ability Standby Assistance Contact Guard Assistance Areas Needing Assistance Retrieving/Set-up of Grooming Items Comments OT Grooming Comments CGA while standing at the sink with FWW for grooming needs. OT ADL-Oral Care General Eval Oral Care Ability Independent OT ADL-Dressing General Eval Lower Body Dressing Ability Moderate Assistance Areas Needing Assistance Underpants/Brief Socks Comments OT Dressing Comments MODA to help marla brief over her right foot and for right sock. Educated pt on LB AED. OT ADL-Toileting General Evaluation Toileting Ability MODAssistance Areas Needing Assistance Manage Clothing Devices Toileting Assistive Devices Grab Bars Comments OT Toileting Comments REBECCA for clothing management to help get the brief on. Also educated to marla right LE first. Pt having difficulty with her balance and needing CGA while sitting on the toilet to reach over to put on the brief . OT ADL-Bathing Comments OT Bathing Comments Pt states wants to shower tomorrow. M5 OT- IP IADL's Start: 11/30/18 16:38 Freq: Status: Active Protocol: Document 11/30/18 16:44 [facility] (Rec: 11/30/18 17:36 [facility] [id number]) OT-Instrumental Activities of Daily Living Home Safety Awareness Home Safety Comments Pt states was completely independent with all IADL needs prior to surgery. To continue to assess pt for home safety needs as currently pt is confused at times, decreased short term memory, and impulsive. M6 OT- IP Functional Cognition Start: 11/30/18 16:38 Freq: Status: Active Protocol: Document 11/30/18 16:44 [facility] (Rec: 11/30/18 17:36 [facility] [id number]) Cognitive Factors Limiting Selfcare Function Cognitive Ability Level of Alertness Alert Patient Orientation Name Year Day of Week Place Situation Attention Span Ability Capable of Focused Attention Unable to Sustain Attention Ability to Follow Commands Able to Follow One Step Commands Memory Description Short Term Impaired Safety Awareness Decreased Ability to Apply Precautions Underestimates Need for Assistance Problem Solving Ability Unable to Identify Errors Needs Assist to Identify Solutions Executive Function Ability Unable to Switch Focus Unable to Filter Distractions Unable to Remember Details Cognitive Tests SLUMS Pt's score may be affected my pain medications as she scored 16/30, normal is 27/30. Pt having trouble with short term memory, unable to recall 5 objects given, unable to recall information for two digit math equation, unable to draw a clock accurately, recall 4 digit number backwards, unable to neame greater than 15 animals in one minute, and recall one piece of information in a paragraph read. Pt not remembering that the call button in the TV remote and needing time to figure out how to turn on the TV. Right after discussing at length with pt to study, visual her precautions and techniques, pt states, I do not know what to do now? Cognitive Comments Cognitive Assessment Comments Pt needing concrete directions , step by step instructions, easily distracted, having difficulty getting her words out, and needing reminders for hip precautions. Pt feels that the pain medications, level of pain, and lack of sleep is effecting her thinking. Pt scored 182 seconds and needing MOD cues to complete [place] Making Part B which implies per [employer] a score of greater than 180seconds implies someone more likely to get into a car accident. [place] Making B looks at visual attention, task switching, speed of processing, executive function, and mental flexibility. OT- Vision and Hearing OT- Hearing Assessment OT- Hearing Assessment WFL OT- Vision Assessment Visual Acuity WFL M7 OT- IP Mobility and Balance Start: 11/30/18 16:38 Freq: Status: Active Protocol: Document 11/30/18 16:44 [facility] (Rec: 11/30/18 17:36 [facility] [id number]) OT-Transfer Assessment Sit to and From Stand Sit to and from Stand Contact Guard Assistance Transfers Transfer Ability Minimal Assistance Technique Transfer Destination Chair Toilet Transfer Technique Stand Step Pivot Devices Transfer Assistive Devices Gait Belt Front Wheeled Walker Comments Mobility Comments Pt needing step by step instructions for sit to stand and hip precaution for sequence while stepping forwards, backwards and turning. MAX vc to start and then needing MIN VC. OT- Balance Assessment Sitting Balance and Reactions Static Sitting Balance Ability Good Dynamic Sitting Balance Ability Fair Standing Balance and Reactions Static Standing Balance Ability Fair M8 OT- IP Objective Assessments Start: 11/30/18 16:38 Freq: Status: Active Protocol: Document 11/30/18 16:44 [facility] (Rec: 11/30/18 17:36 [facility] [id number]) OT Gross Range of Motion Upper Extremity Range of Motion Assessment Within Functional Limits OT Strength Comments Strength Comments BUE 4/5 OT- Coordination Assessment Comments Coordination Comments Arthritic changes in BUE, however able to use hands to marla socks. M9 OT- IP Assessment and Plan Start: 11/30/18 16:38 Freq: Status: Active Protocol: Document 11/30/18 16:44 [facility] (Rec: 11/30/18 17:36 [facility] [id number]) OT Summary Assessment and Plan Potential Rehabilitation Potential Good Analytic Complexity at Evaluation Low Summary OT Impairments Pain Strength Balance Functional Cognition Functional Mobility Grooming Dressing Toileting Bathing Toilet Transfers Shower Transfers Progress Towards Goals Slow Progress due to Pain Slow Progress due to Cognition Assessment Summary Pt low complexity and main barriers are steps, decreased cognition-however may be effected by pain medications, decreased safety awareness, and ability to incorporate hip precautions. Pt lives alone and would benefit from skilled rehab. Pt's right leg buckle at times and still not able to follow hip precautions. Goals Grooming Goal Independent Dressing Goal Independent Toileting Goal Independent Bathing Goal Standby Assistance Toilet Transfer Goal Independent Shower Transfer Goal Standby Assistance Patient/Caregiver Education Goal Demonstrate Post-Op Precautions Caregiver Independent Assisting Patient Days to Meet Goals 7 Frequency of Treatment Frequency Of Treatment Once a Day Treatment Plan OT Treatment Plan ADL Training Functional Cognition Training Functional Mobility Patient/Family Education Discharge Planning Other Treatment Recommendations and Next Shower, safety with hip Treatment Focus precautions, reassess cognition Discharge Recommendations OT Discharge Recommendations SNF Rehab Home Equipment Needs LB AED
[2018-11-30 19:35] VITALS: BP 136/63; PULSE 68; RESP 17; TEMP 36.9; O2SAT 98
[2018-11-30 23:46] VITALS: BP 141/61; PULSE 66; RESP 16; TEMP 36.9
--- NOTE | 2018-12-01 00:09 | PC.NURSE ---
2300- Pt POD#1 R total hip anterior approach. Tigistel drsg CDI; CMS intact; bilateral SED's in place. Pt denies pain at this time; moving to bathroom 1PA, needs ques for correct body posture & alignment. BG has not been controlled during this stay and pt states that's why she has seemed confused--not because of PO Oxycodone given to her earlier in the day. Will cont to monitor BG through the night per protocol. 0300- Pt up to bathroom through the night. CO no BM so Colace given early as well as Miralax. Small, hard, formed BM noted. 0610- Pt up to chair.
[2018-12-01] MEDS: INSULIN ASPART 100 UNIT/ML INSULN PEN SUBCUT ×8 (02:36→20:32)
[2018-12-01] MEDS: DOCUSATE 100 MG CAPSULE PO ×2 (03:24→20:31)
[2018-12-01] MEDS: POLYETHYLENE GLYCOL 3350 17 GM POWD.PACK PO (03:24)
[2018-12-01 03:39] VITALS: BP 140/83; PULSE 77; RESP 16; TEMP 36.5; O2SAT 93
[2018-12-01 07:30] VITALS: BP 129/58; PULSE 59; RESP 15; TEMP 36.9; O2SAT 99
[2018-12-01] MEDS: ASPIRIN EC 81 MG TABLET PO ×2 (08:00→20:31)
[2018-12-01] MEDS: ACETAMINOPHEN 325 MG TABLET 975 MG PO ×3 (08:00→20:31)
--- NOTE | 2018-12-01 09:17 | PM.PNPO.1 ---
Subjective Date Patient Seen: 12/01/18 Time Patient Seen: 09:17 Interval history: Patient's pain is mild. Denies fever chills. No nausea vomiting. She took too short walks yesterday in the room with physical therapy. She has assistance at home available tomorrow. Patient does live alone. Exam Vital Signs (past 8 hours): - 12/01/18 03:39 12/01/18 07:30 Temperature 97.7 F 98.5 F Pulse Rate 77 59 L Respiratory Rate 16 15 Blood Pressure 140/83 129/58 L Pulse Oximetry 93 99 Oxygen Delivery Method Room Air Oxygen Flow Rate 0 Narrative Exam Narrative: 68-year-old female sitting in bedside chair in no apparent distress. Right hip dressing is clean, dry and intact. Neurovascular status is intact to the right distal lower extremity. Objective Labs Result Diagrams: 11/30/18 06:00 11/30/18 06:00 Assessment & Plan Post-op Postoperative Procedures Operation Date: 11/29/18 12:00 Actual Procedures Side Surgeon p Total Hip Arthroplasty/Anterior Approach Right Alyse Flores MD Patient has been slow to mobilize with physical therapy. She will work with physical therapy today. Anterior hip precautions. She has assistance at home and a ride home who isn't available until tomorrow. Plan is to discharge home tomorrow if stable per hospitalist. Appreciate hospitalist assistance managing diabetes and hypertension.
--- NOTE | 2018-12-01 09:31 | PC.NURSE ---
Addendum entered by Jerri Guadalupe R.N. 12/01/18 14:33: MS/GI/PAIN - up fww, ambul in room after in br w/void and soft bm, states r hip discomfort 4 on scale 0/10, ret to chair and set chair alarm, given 975mg po tylenol for afternoon mobilization with phys therapy, states providing adequate relief. Addendum entered by Jerri Guadalupe R.N. 12/01/18 11:20: MS/PAIN - tony shower w/ OT, states earlier tylenol providing adequate relief, declines addl medications, ret to chair w/alarm set. Original Note: AM NAOTE - pt up to chair for breakfast, chair alarm set, states had good night, discussed pain mgt, r hip 6 on scale 0/10 when I move, prefers to continue with tylenol and declines narcotic or naproxen this am, tony diet, had formed bm during night, discussed stool softeners and laxatives for home, pt does repeat same questions at times.
[2018-12-01 11:00] VITALS: BP 125/62; PULSE 61; RESP 16; TEMP 37; O2SAT 99
--- NOTE | 2018-12-01 11:04 | PT.IPTN ---
Current Diagnoses Unilateral primary osteoarthritis, right hip (11/29/18) Surgery Performed Operation Date: 11/29/18 12:00 Actual Procedures p Total Hip Arthroplasty/Anterior Approach(Right) - Alyse Flores MD Physical Therapy Treatment Note M2 PT-IP Current Condition Start: 11/30/18 12:51 Freq: NEEDED Status: Active Protocol: Document 11/30/18 09:20 AB (Rec: 11/30/18 13:27 AB [id number]) Physical Therapy Current Condition Current Condition Evaluation Date 11/30/18 Treatment Diagnosis s/p R KATHERINE anterior approach; difficulty in walking Onset Date 11/29/18 Precautions Anterior Hip Precautions No Hip Extension No Hip External Rotation Weight Bearing Status Weight Bearing Status Weight Bear as Tolerated M3 PT-IP Subjective Start: 11/30/18 12:51 Freq: NEEDED Status: Active Protocol: Document 12/01/18 10:57 SA (Rec: 12/01/18 11:04 SA [id number]) Subjective Physical Therapy Visit Type Type Treatment Note Visit Start Time 10:15 Visit Stop Time 10:45 Total Visit Minutes 30 Number of FOOD SERVICE Visits 1 Physical Therapy Visit Comments Patient Comments Pt up in chair, agreeable to PT. Therapy Pain Assessment Pain When Pain Assessed During Mobility Pain Present Pain Present Pain Reported Location right hip Intensity 5 Scale Used Numeric (1 - 10) Pain Management Techniques Re-positioning Timing of Activity with Medications M4 PT-IP Mobility and Gait Start: 11/30/18 12:51 Freq: NEEDED Status: Active Protocol: Document 12/01/18 10:57 SA (Rec: 12/01/18 11:04 SA [id number]) PT-Transfer Assessment Sit to and From Stand Sit to and from Stand Contact Guard Assistance Minimal Assistance 1 Person Assistance Equipment Transfer Assistive Device Gait Belt Front Wheeled Walker Orthotic/Prosthetic Devices or Brace: No Transfers Transfer Destination Chair Transfer Technique Stand Step Pivot Transfer Ability Level of Assist Standby Assistance Contact Guard Assistance 1 Person Assistance Comments Mobility Comments CGA-Min A for transfers, cues for safety and precautions. Gait Assessment Gait Gait Assistance Required: Contact Guard Assist 1 Person Assist Distance (Feet) 160 Able to Maintain Weight Bearing Status Yes During Gait Assistive Devices Assistive Device Gait Belt Front Wheeled Walker Orthotic/Prosthetic Devices or Brace: No Gait Deviations General Gait Pattern Antalgic Decreased Stride Length Decreased Feet Clearance Factors Limiting Gait Function Factors Limiting Gait Function Decreased Activity Tolerance Decreased Strength Difficulty Following Directions Pain Poor Balance Poor Safety Awareness Comments Gait Comments Gait training in room/pantoja for 80 + 80 feet with step to gait pattern and cues for precautions. Focus on doyle gluts/quads with gait. M5 PT-IP Objective Assessments Start: 11/30/18 12:51 Freq: NEEDED Status: Active Protocol: Document 11/30/18 09:20 AB (Rec: 11/30/18 13:27 AB [id number]) Orientation Orientation/Cognition Level of Alertness Confusional State Orientation Name Age Year Place Situation Safety Awareness Decreased Safety Awareness Memory Description Short Term Impaired Mcfp Impaired Gross Range of Motion Lower Extremity ROM Assessment Within Functional Limits Strength Lower Extremity Strength Assessment Right Impaired Hip 3/5 Knee 3/5 Coordination Assessment Gross Coordination Gross Coordination WNL Sensation Assessment Sensation Gross Sensation WNL Muscle Tone Muscle Tone WNL Yes M6 PT-IP Treatment Start: 11/30/18 12:51 Freq: NEEDED Status: Active Protocol: Document 12/01/18 10:57 SA (Rec: 12/01/18 11:04 [id number]) Physical Therapy Treatment Exercises Exercises Ankle Pumps Gluteal Sets Quad Sets Heel Slides Education Education Provided Precautions Weight Bearing Status Safety Other Treatments Other Treatment Performed Improving recall of hip precautions during mobility and safe use of FWW. M7 PT-IP Assessment and Plan Start: 11/30/18 12:51 Freq: NEEDED Status: Active Protocol: Document 12/01/18 10:57 SA (Rec: 12/01/18 11:04 [id number]) PT Summary Assessment and Plan Summary Assessment Summary Pt progressing today with improving mobility and recall of precautions. Frequency of Treatment Frequency Of Treatment Twice a Day Treatment Plan Physical Therapy Treatment Plan Bed Mobility Training Transfer Training Gait Training Therapeutic Exercise Balance Retraining Post Op Education Discharge Planning Hot or Cold Pack Neuromuscular Re-ed Coordination Retraining Manual Therapy Other Recommendations and Next Treatment ambulation Focus Recommendations To Nursing Amount of Assist Needed 1 Person Assist Discharge Recommendations PT Discharge Recommendations Home with Assistance SNF Rehab
--- NOTE | 2018-12-01 11:29 | PM.PN.1 ---
Subjective Date Patient Seen: 12/01/18 Interval history: Postop day 2. Right hip replacement. BP's improving and in normal range off of lisinopril. Blood sugars improving, last CBG 270. Exam Vital Signs (past 8 hours): - 12/01/18 03:39 12/01/18 07:30 12/01/18 11:00 Temperature 97.7 F 98.5 F 98.6 F Pulse Rate 77 59 L 61 Respiratory Rate 16 15 16 Blood Pressure 140/83 129/58 L 125/62 Pulse Oximetry 93 99 99 Oxygen Delivery Method Room Air Oxygen Flow Rate 0 Narrative Exam Narrative: General: Pleasant female, NAD Objective Labs Result Diagrams: 11/30/18 06:00 11/30/18 06:00 Assessment & Plan Assessment & Plan narrative: 1. Type 2 diabetes, insulin-dependent, controlled, active -elevated glucose readings postop are improving, tightly controlled at home with A1c 6.0 -increase basal insulin to 14 units q.p.m., continue NovoLog 4 units t.i.d. with meals, continue NovoLog low-dose sliding scale 2. Acute postop hypertension without diagnosis of chronic hypertension -blood pressures have improved and in normal range -previously discontinued lisinopril started postop 3. Heart murmur -patient endorses history of being told she has heart murmur but has not had any follow-up cardiac evaluation. -consider outpatient echo 4. Osteoporosis, chronic, presumed stable -patient is postmenopausal with osteoporosis by history, no DEXA scan report is available for review to identify severity. -recommended continuation of calcium and vitamin D3 supplementation. -additional management per primary care provider. Patient is medically stable from hospitalist standpoint and can be discharged on her routine insulin regimen. She does not appear to need blood pressure lowering medication. At this time, we are signing off but available to see patient again if need arises.
--- NOTE | 2018-12-01 13:07 | OT.IP.TRT ---
Current Diagnoses Unilateral primary osteoarthritis, right hip (11/29/18) Surgery Performed Operation Date: 11/29/18 12:00 Actual Procedures p Total Hip Arthroplasty/Anterior Approach(Right) - Alyse Flores MD Occupational Therapy Treatment Note M2 OT-IP Current Condition Start: 11/30/18 16:38 Freq: Status: Active Protocol: Document 11/30/18 16:44 [facility] (Rec: 11/30/18 17:36 [facility] [id number]) Occupational Therapy Current Condition Current Condition Evaluation Date 11/30/18 Treatment Diagnosis S/p R KATHERINE anterior approach, weakness Diagnosis Onset Date 11/29/18 Post Operative Precautions Anterior Hip Precautions No Hip Extension No Hip External Rotation Weight Bearing Status Weight Bearing Status Weight Bear as Tolerated M3 OT- IP Subjective and Pain Start: 11/30/18 16:38 Freq: Status: Active Protocol: Document 12/01/18 12:51 [facility] (Rec: 12/01/18 13:07 [facility] [id number]) OT- Subjective Occupational Therapy Visit Type Type Treatment Note Visit Start Time 09:10 Visit Stop Time 10:05 Total Visit Minutes 55 Occupational Therapy Visit Comments Patient Comments Pt wanting to shower. OT Pain Assessment Pain When Pain Assessed At Rest Pain Present Pain Present Denied Pain M4 OT- IP ADL's Start: 11/30/18 16:38 Freq: Status: Active Protocol: Document 12/01/18 12:51 [facility] (Rec: 12/01/18 13:07 [facility] [id number]) OT ADL-Dressing General Eval Lower Body Dressing Ability Standby Assistance Comments OT Dressing Comments SBA while donning and doffing brief and socks. reminders not to cross RLE and best to prop right foot up on stool to marla /doff socks. OT ADL-Toileting General Evaluation Toileting Ability Standby Assistance Devices Toileting Assistive Devices Grab Bars Comments OT Toileting Comments Pt able to do all toilet with SBA and occasional reminders for hip precautions. OT ADL-Bathing Bathing Type Bathing Type Shower General Evaluation Bathing Ability Minimal Assistance Comments OT Bathing Comments Guido to help wash her back and vc for safety to be not externally rotate if having to turn to the left and take smaller steps. Best for pt to have someone assist her for showers at home. M5 OT- IP IADL's Start: 07/10/19 16:38 Freq: Status: Active Protocol: Document 11/30/18 16:44 [facility] (Rec: 11/30/18 17:36 [facility] [id number]) OT-Instrumental Activities of Daily Living Home Safety Awareness Home Safety Comments Pt states was completely independent with all IADL needs prior to surgery. To continue to assess pt for home safety needs as currently pt is confused at times, decreased short term memorry, and impulsive. M6 OT- IP Functional Cognition Start: 11/30/18 16:38 Freq: Status: Active Protocol: Document 12/01/18 12:51 [facility] (Rec: 12/01/18 13:07 [facility] [id number]) Cognitive Factors Limiting Selfcare Function Cognitive Ability Level of Alertness Alert Patient Orientation Name Year Day of Week Place Situation Attention Span Ability Capable of Focused Attention Unable to Sustain Attention Ability to Follow Commands Able to Follow One Step Commands Memory Description Short Term Impaired Safety Awareness Decreased Ability to Apply Precautions Underestimates Need for Assistance Problem Solving Ability Unable to Identify Errors Needs Assist to Identify Solutions Executive Function Ability Unable to Switch Focus Unable to Filter Distractions Unable to Remember Details Cognitive Tests SLUMS When asked to recall 5 words again today, still unable to recall any after 3 minutes. Cognitive Comments Cognitive Assessment Comments Pt thinking better and 90 % for all home safety situations , however has intermittent episodes of confusion. Therapist placed plastic glove to cover IV site to prevent it from getting wet. After a few minutes, pt asked therapist, what is this on my arm. In addition pt able to incorporate hip precautions initially and then forgetting and needing cues to take smaller steps. M7 OT- IP Mobility and Balance Start: 11/30/18 16:38 Freq: Status: Active Protocol: Document 12/01/18 12:51 [facility] (Rec: 12/01/18 13:07 [facility] [id number]) OT-Transfer Assessment Sit to and From Stand Sit to and from Stand Contact Guard Assistance Transfers Transfer Ability Contact Guard Assistance Technique Transfer Destination Chair Shower Stall Toilet Transfer Technique Stand Step Pivot Devices Transfer Assistive Devices Gait Belt Front Wheeled Walker Comments Mobility Comments Pt doing better to recall sequence to stand and which foot to move first during walking with FWW. However pt easily distracted and then forgets her hip precautions. OT- Balance Assessment Sitting Balance and Reactions Static Sitting Balance Ability Normal Dynamic Sitting Balance Ability Good Standing Balance and Reactions Static Standing Balance Ability Good M8 OT- IP Objective Assessments Start: 11/30/18 16:38 Freq: Status: Active Protocol: Document 11/30/18 16:44 [facility] (Rec: 11/30/18 17:36 [facility] [id number]) OT Gross Range of Motion Upper Extremity Range of Motion Assessment Within Functional Limits OT Strength Comments Strength Comments BUE 4/5 OT- Coordination Assessment Comments Coordination Comments Arthritic changes in BUE, however able to use hands to marla socks. M9 OT- IP Assessment and Plan Start: 11/30/18 16:38 Freq: Status: Active Protocol: Document 12/01/18 12:51 [facility] (Rec: 12/01/18 13:07 [facility] [id number]) OT Summary Assessment and Plan Potential Rehabilitation Potential Good Analytic Complexity at Evaluation Low Summary OT Impairments Pain Strength Balance Functional Cognition Functional Mobility Grooming Dressing Toileting Bathing Toilet Transfers Shower Transfers Progress Towards Goals Slow Progress due to Cognition Assessment Summary Main deficit for pt is stairs and functional cognition and inconsistent to incorporate hip precautions. Pt to have friend stay with her and then another person to assist the next day or so. It is highly recommended that pt go to skilled rehab for short stay to continue to train and re- train and practice with pt for all ADl and functional mobility needs. Goals Grooming Goal Independent Dressing Goal Independent Toileting Goal Independent Bathing Goal Standby Assistance Toilet Transfer Goal Independent Shower Transfer Goal Standby Assistance Patient/Caregiver Education Goal Demonstrate Post-Op Precautions Caregiver Independent Assisting Patient Days to Meet Goals 6 Frequency of Treatment Frequency Of Treatment Once a Day Treatment Plan OT Treatment Plan ADL Training Functional Cognition Training Functional Mobility Patient/Family Education Discharge Planning Other Treatment Recommendations and Next Safety with hip precautions. 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
[2018-12-01 15:38] VITALS: BP 133/59; PULSE 65; RESP 18; TEMP 37.1; O2SAT 97
--- NOTE | 2018-12-01 15:48 | PC.NURSE ---
Addendum entered by Leslie Montalvo R.N. 12/01/18 22:28: Blood sugars remain elevated. Insulin as per emar. ADA diet reviewed. Tylenol only for pain 5/10. Bed alarm as pt can be impulsive in attempting out of bed without calling for staff assistance. BL calf scd's in place. Original Note: Pt has ambulated twice around [employer] [facility] with P.T. while shift report took place. Now up in recliner awake and alert. Denies pain to right hip @ rest. States pain 5.5/10 with ambulation. Admits to full sensation to BL LE's. Able to move all extremities independently. Denies nausea. Admits to urinary urgency, but denies burning with urination. Brief in place. Chair alarm in place and instructed to call prior to attempting movement from chair. Pt verbalizes understanding and agreement.
--- NOTE | 2018-12-01 16:16 | PT.IPTN ---
Current Diagnoses Unilateral primary osteoarthritis, right hip (11/29/18) Surgery Performed Operation Date: 11/29/18 12:00 Actual Procedures p Total Hip Arthroplasty/Anterior Approach(Right) - Alyse Flores MD Physical Therapy Treatment Note M2 PT-IP Current Condition Start: 11/30/18 12:51 Freq: NEEDED Status: Active Protocol: Document 11/30/18 09:20 [facility] (Rec: 11/30/18 13:27 AB [id number]) Physical Therapy Current Condition Current Condition Evaluation Date 11/30/18 Treatment Diagnosis s/p R KATHERINE anterior approach; difficulty in walking Onset Date 11/29/18 Precautions Anterior Hip Precautions No Hip Extension No Hip External Rotation Weight Bearing Status Weight Bearing Status Weight Bear as Tolerated M3 PT-IP Subjective Start: 11/30/18 12:51 Freq: NEEDED Status: Active Protocol: Document 12/01/18 16:06 [facility] (Rec: 12/01/18 16:16 SA [id number]) Subjective Physical Therapy Visit Type Type Treatment Note Visit Start Time 14:56 Visit Stop Time 15:25 Total Visit Minutes 29 Number of ASSOCIATE JUSTICE Visits 2 Physical Therapy Visit Comments Patient Comments Pt up in chair, agreeable to PT. Therapy Pain Assessment Pain When Pain Assessed During Mobility Pain Present Pain Present Pain Reported Location right hip Intensity 3 Scale Used Numeric (1 - 10) Pain Management Techniques Re-positioning Timing of Activity with Medications M4 PT-IP Mobility and Gait Start: 11/30/18 12:51 Freq: NEEDED Status: Active Protocol: Document 12/01/18 16:06 SA (Rec: 12/01/18 16:16 SA [id number]) PT-Transfer Assessment Sit to and From Stand Sit to and from Stand Contact Guard Assistance 1 Person Assistance Equipment Transfer Assistive Device Gait Belt Front Wheeled Walker Orthotic/Prosthetic Devices or Brace: No Transfers Transfer Destination Chair Transfer Technique Stand Step Pivot Transfer Ability Level of Assist Standby Assistance Contact Guard Assistance 1 Person Assistance Comments Mobility Comments Pt demonstrates improving safety with transfers, maintains precautions well during txs. Gait Assessment Gait Gait Assistance Required: Standby Assistance Contact Guard Assist 1 Person Assist Distance (Feet) 300 Able to Maintain Weight Bearing Status Yes During Gait Assistive Devices Assistive Device Gait Belt Front Wheeled Walker Orthotic/Prosthetic Devices or Brace: No Gait Deviations General Gait Pattern Antalgic Decreased Stride Length Decreased Feet Clearance Factors Limiting Gait Function Factors Limiting Gait Function Decreased Activity Tolerance Decreased Strength Difficulty Following Directions Pain Poor Balance Poor Safety Awareness Comments Gait Comments Gait training in [place]antoja with FWW /SBA-CGA for 150 feet x 2 with cues for slowing down and maintaining step to gait pattern. Pt tends to get distracted and forget. Stair Climbing Assessment Evaluation Level of Assist On Stairs Contact Guard Assistance 1 Person Assistance Devices Stair Climbing Assistive Devices Left Railing Right Railing Technique/Endurance Stair Climbing Direction Ascend and Descend Stair Climbing Technique Step to Step Number of Steps Climbed 3 Stair Climbing Set # Repetitions (reps) 2 Comments Stair Climbing Comments Pt needs cues for safe technique and maintaining precautions, step to gait with use of B rails. M5 PT-IP Objective Assessments Start: 11/30/18 12:51 Freq: NEEDED Status: Active Protocol: Document 11/30/18 09:20 [facility] (Rec: 11/30/18 13:27 AB [id number]) Orientation Orientation/Cognition Level of Alertness Confusional State Orientation Name Age Year Place Situation Safety Awareness Decreased Safety Awareness Memory Description Short Term Impaired Group Home Impaired Gross Range of Motion Lower Extremity ROM Assessment Within Functional Limits Strength Lower Extremity Strength Assessment Right Impaired Hip 3/5 Knee 3/5 Coordination Assessment Gross Coordination Gross Coordination WNL Sensation Assessment Sensation Gross Sensation WNL Muscle Tone Muscle Tone WNL Yes M6 PT-IP Treatment Start: 11/30/18 12:51 Freq: NEEDED Status: Active Protocol: Document 12/01/18 16:06 (Rec: 12/01/18 16:16 [id number]) Physical Therapy Treatment Exercises Exercises Ankle Pumps Gluteal Sets Quad Sets Heel Slides Education Education Provided Precautions Weight Bearing Status Safety M7 PT-IP Assessment and Plan Start: 11/30/18 12:51 Freq: NEEDED Status: Active Protocol: Document 12/01/18 16:06 SA (Rec: 12/01/18 16:16 [id number]) PT Summary Assessment and Plan Summary Assessment Summary Pt progressing well with mobility, but needs frequent cues/reminders fro safety and precautions. Frequency of Treatment Frequency Of Treatment Twice a Day Treatment Plan Physical Therapy Treatment Plan Bed Mobility Training Transfer Training Gait Training Therapeutic Exercise Balance Retraining Post Op Education Discharge Planning Hot or Cold Pack Neuromuscular Re-ed Coordination Retraining Manual Therapy Other Recommendations and Next Treatment ambulation Focus Recommendations To Nursing Amount of Assist Needed 1 Person Assist Discharge Recommendations PT Discharge Recommendations Home with Assistance Home Health Outpatient PT
[2018-12-01] MEDS: INSULIN GLARGINE 14 EACH SUBCUT (16:53)
[2018-12-01 20:25] VITALS: BP 160/81; PULSE 66; RESP 18; TEMP 36.9; O2SAT 97
[2018-12-01] MEDS: SODIUM CHLORIDE 0.9% FLUSH 10 ML IV (20:41)
[2018-12-01 23:59] VITALS: BP 139/57; PULSE 53; RESP 18; TEMP 37.2; O2SAT 98
--- NOTE | 2018-12-02 02:03 | PC.NURSE ---
Patient Care Assistant Note: 0000: Awake, assisted up to bathroom with walker. Vital signs stable. IV in place in lt forearm. SCDs on. Aquacel dressing to rt thigh is cdi. Pt declines pain medication. Pillow in place between knees. 0150: Assisted up to bathroom, voided. Pt declines pain medication.
[2018-12-02 05:00] VITALS: BP 123/53; PULSE 59; RESP 16; TEMP 37.3; O2SAT 99
[2018-12-02 07:20] VITALS: BP 112/56; PULSE 59; RESP 16; TEMP 36.8; O2SAT 99
--- NOTE | 2018-12-02 08:07 | PC.NURSE ---
Addendum entered by Jerri Guadalupe R.N. 12/02/18 12:13: DC - when friend arrived, was given script for oxycodone and filled downstairs, when ready to dc, [place], her cbg was 408 and after discussion, given 9 units novalog and had sugar free elizabeth pudding now while waiting, reviewed the dc instructions with pt and friend, belongings gathered, including cell phone, tablet, chargers, glasses, black suitcase, own fww, priority board provided, SL removed, art instructor assisted w/tsf to wc and escorted to friend's car. Original Note: AM NOTE - alert, up to chair before breakfast, states slept well last night, +cms, hr 60,ra 100%, discussed pain mgt and will continue with scheduled tylenol dose this am.
[2018-12-02] MEDS: ASPIRIN EC 81 MG TABLET PO (08:11)
[2018-12-02] MEDS: DOCUSATE 100 MG CAPSULE PO (08:11)
[2018-12-02] MEDS: ACETAMINOPHEN 325 MG TABLET 975 MG PO (08:11)
[2018-12-02] MEDS: INSULIN ASPART 100 UNIT/ML INSULN PEN SUBCUT ×4 (08:14→11:55)
--- NOTE | 2018-12-02 08:18 | PM.DS.1 ---
History of Present Illness Date Patient Seen: 12/02/18 Time Patient Seen: 08:18 Chief complaint: [id number] RIGHT ANTERIOR KATHERINE Narrative: Please see HPI previously recorded in chart. Discharge Providers Date of admission: 11/29/18 09:56 Discharge Date: 12/02/18 Primary care physician: Yesenia Leo MD Consults: 11/16/18 12:07 Consult to [employer] Routine Comment: pt requests to speak with child protective services social worker 11/29/18 06:00 Consult to Anesthesiology Routine Comment: Consulting Provider: Anesthesiologist Reason for consultation: Regional block for post operative pain control 11/29/18 16:45 Consult to Hospitalist Service Routine Comment: Consulting Provider: Veena Martinez Reason for consultation: diabetes Has provider been notified: Yes 11/29/18 16:51 Consult to Discharge Planning Routine Comment: Consult to Physical Therapy Evaluate & Treat Comment: Physician Instructions: post op KATHERINE protocol Consult to Respiratory Therapy Evaluate & Treat Comment: Physician Instructions: Evaluate and treat 11/30/18 12:22 Consult to Occupational Therapy Evaluate & Treat Comment: Physician Instructions: Evaluate and treat Discharge provider: Marbella Fleming PA-C Summary Discharge Diagnosis: s/p right anterior hip arthroplasty Diabetes Hospital Course: The patient has had progressively worsening right hip pain with radiographic changes consistent with arthritis. Non-operative management has failed and the patient has requested total hip replacement. The risks, benefits and alternatives to surgery were discussed with the patient prior to proceeding. Risks discussed included, but were not limited to, failure to relieve pain, leg length discrepancy, dislocation, stiffness, infection, nerve damage, deep venous thrombosis, pulmonary embolism, stroke, coma, heart attack, permanent paralysis and , as well as the potential need for eventual revision of the prosthetic. After informed consent was obtained patient was taken to the operating room for a right anterior hip arthroplasty with Dr. Flores which she tolerated well. Her pain has been well controlled and is mostly taking Tylenol. She will be discharged with short script of oxycodone for severe pain as needed. She was initially slow to mobilize but has been progressing well with physical therapy. She has the assistance of a friend at home as a lecturer of portuguese. She deneis any chest pain or shortness of breath. She had some in her blood sugar and blood pressure post operatively and the hospitalist team was consulted. She has been cleared to resume her usual regimen at home. She is medically stable for discharge today. Status at Discharge Cognitive/behavioral status at discharge: oriented Functional status at discharge: uses cane/walker Overall status at discharge: patient is progressing back to baseline Exam Vital Signs (past 8 hours): - 12/02/18 05:00 Temperature 99.1 F Pulse Rate 59 L Respiratory Rate 16 Blood Pressure 123/53 L Pulse Oximetry 99 Oxygen Delivery Method Room Air Oxygen Flow Rate 0 Narrative Exam Narrative: Pleasant 68 year old female resting comfortably in chair. Alert and oriented in no acute distress. Dressing in place over right hip is clean, dry and intact. Intact distal motor function. SILT. Palpable pedal pulse. Calves soft, compressible bilaterally. Objective Labs Result Diagrams: 11/30/18 06:00 11/30/18 06:00 Discharge Plan Discharge Plan Patient Disposition: Home Discharge Med Rec/Prescriptions Prescriptions: New aspirin 81 mg Tablet,Delayed Release (Dr/Ec) 81 mg PO BID Qty: 60 RF: 0 docusate sodium [DOK] 100 mg Capsule 100 mg PO BID Qty: 60 RF: 0 oxycodone 5 mg Tablet 5 mg PO Q4-6H PRN (Reason: Pain, Moderate (4-6)) Qty: 20 RF: 0 Continued acetaminophen [Tylenol Extra Strength] 500 mg Tablet 1,000 mg PO QID RF: 0 insulin lispro [Humalog KwikPen Insulin] 100 unit/mL Insulin Pen 2 - 3 unit SUBCUT TID RF: 0 naproxen sodium [Aleve] 220 mg Capsule 220 mg PO Q OTHER DAY RF: 0 Toujeo Max U-300 SoloStar 300 unit/mL (3 mL) Insulin Pen 14 unit SUBCUT QPM RF: 0 melatonin 1 mg Tablet 2 mg PO BEDTIME PRN (Reason: Sleep) RF: 0 Follow up/Referrals: Yesenia Leo MD [Primary Care Provider] - Alyse Flores MD [Physician] - Provider Discharge Instructions Diet: Diet as Tolerated Activity: Weight bear as tolerated. Use front wheel walker for support. Anterior hip precautions. Cold/Heat Therapy: Ice packs as needed. Skin/Wound/Dressing Care Report to your healthcare provider any signs of infection, such as:: chills, fever, night sweats, unusual drainage and unusual redness Dressing: Leave Aquacel dressing in place, it will be removed at 2 week post operative visit. Call the office if dressing becomes saturated. Visit Report/Discharge Packet Instructions: DI for Hip Replacement Discharge Data Primary Care Provider: Yesenia Leo Attending Provider: Alyse Flores Admit Date/Time: 11/29/18 09:56
[2018-12-02] MEDS: SODIUM CHLORIDE 0.9% FLUSH 10 ML IV (08:19)
--- NOTE | 2018-12-02 10:04 | PT.IPTN ---
Current Diagnoses Unilateral primary osteoarthritis, right hip (11/29/18) Surgery Performed Operation Date: 11/29/18 12:00 Actual Procedures p Total Hip Arthroplasty/Anterior Approach(Right) - Alyse Flores MD Physical Therapy Treatment Note M2 PT-IP Current Condition Start: 11/30/18 12:51 Freq: NEEDED Status: Active Protocol: Document 11/30/18 09:20 AB (Rec: 11/30/18 13:27 AB [id number]) Physical Therapy Current Condition Current Condition Evaluation Date 11/30/18 Treatment Diagnosis s/p R KATHERINE anterior approach; difficulty in walking Onset Date 11/29/18 Precautions Anterior Hip Precautions No Hip Extension No Hip External Rotation Weight Bearing Status Weight Bearing Status Weight Bear as Tolerated M3 PT-IP Subjective Start: 11/30/18 12:51 Freq: NEEDED Status: Active Protocol: Document 12/02/18 09:01 LJ (Rec: 12/02/18 10:04 LJ [id number]) Subjective Physical Therapy Visit Type Type Treatment Note Visit Start Time 09:01 Visit Stop Time 09:26 Total Visit Minutes 25 Number of STAGE ELECTRICIAN HELPER Visits 3 Physical Therapy Visit Comments Patient Comments Pt up in chair, agreeable to PT. Dr Flores finishing repeating precautions to pt and explaining her discharge orders Therapy Pain Assessment Pain When Pain Assessed During Mobility Pain Present Pain Present Pain Reported M4 PT-IP Mobility and Gait Start: 11/30/18 12:51 Freq: NEEDED Status: Active Protocol: Document 12/02/18 09:01 LJ (Rec: 12/02/18 10:04 LJ [id number]) PT-Transfer Assessment Sit to and From Stand Sit to and from Stand Contact Guard Assistance 1 Person Assistance Equipment Transfer Assistive Device Gait Belt Front Wheeled Walker Orthotic/Prosthetic Devices or Brace: No Transfers Transfer Destination Chair Toilet Transfer Technique Stand Step Pivot Transfer Ability Level of Assist Standby Assistance Contact Guard Assistance 1 Person Assistance Comments Mobility Comments Pt able to maintain state and maintain precautions during tx . Somewhat impulsive though sit<>stand both times were done carefully within precautions. Gait Assessment Gait Gait Assistance Required: Standby Assistance Contact Guard Assist 1 Person Assist Distance (Feet) 212 Able to Maintain Weight Bearing Status Yes During Gait Assistive Devices Assistive Device Gait Belt Front Wheeled Walker Orthotic/Prosthetic Devices or Brace: No Gait Deviations General Gait Pattern Antalgic Decreased Stride Length Decreased Feet Clearance Factors Limiting Gait Function Factors Limiting Gait Function Decreased Activity Tolerance Decreased Strength Difficulty Following Directions Pain Poor Balance Poor Safety Awareness Comments Gait Comments Gait in hallway pt was rushing requiring cues to slow down and maintain precautions. Pt tends to look at floor rather than ahead focusing on feet. Tends to push FWW too far ahead of herself. 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 Financial Institution Treasurer Impaired Gross Range of Motion Lower Extremity ROM Assessment Within Functional Limits Strength Lower Extremity Strength Assessment Right Impaired Hip 3/5 Knee 3/5 Coordination Assessment Gross Coordination Gross Coordination WNL Sensation Assessment Sensation Gross Sensation WNL Muscle Tone Muscle Tone WNL Yes M6 PT-IP Treatment Start: 11/30/18 12:51 Freq: NEEDED Status: Active Protocol: Document 12/01/18 16:06 SA (Rec: 12/01/18 16:16 SA [id number]) Physical Therapy Treatment Exercises Exercises Ankle Pumps Gluteal Sets Quad Sets Heel Slides Education Education Provided Precautions Weight Bearing Status Safety M7 PT-IP Assessment and Plan Start: 11/30/18 12:51 Freq: NEEDED Status: Active Protocol: Document 12/02/18 09:01 LJ (Rec: 12/02/18 10:04 LJ [id number]) PT Summary Assessment and Plan Potential Rehabilitation Potential Fair Summary Impairments Pain ROM Strength Balance Coordination Sensation Tone Cognition Bed Mobility Transfers Gait Activity Tolerance Assessment Summary Pt progressing well with mobility, but needs frequent cues/reminders for safety and precautions. Goals Bed Mobility Goal Independent Transfer Goal Standby Assistance Front Wheeled Walker Gait Goal Standby Assistance Front Wheel Walker Gait Distance 150 Other Goals up/down 7 steps with bilateral rails + 8 steps with L rail ascending SBA Days to Meet Goals 5 Frequency of Treatment Frequency Of Treatment Twice a Day Treatment Plan Physical Therapy Treatment Plan Bed Mobility Training Transfer Training Gait Training Therapeutic Exercise Balance Retraining Post Op Education Discharge Planning Hot or Cold Pack Neuromuscular Re-ed Coordination Retraining Manual Therapy Recommendations To Nursing Amount of Assist Needed 1 Person Assist Discharge Recommendations PT Discharge Recommendations Home with Assistance Home Health Outpatient PT
--- NOTE | 2018-12-02 12:10 | OT.IP.TRT ---
Current Diagnoses Unilateral primary osteoarthritis, right hip (11/29/18) Surgery Performed Operation Date: 11/29/18 12:00 Actual Procedures p Total Hip Arthroplasty/Anterior Approach(Right) - Alyse Flores MD Occupational Therapy Treatment Note M2 OT-IP Current Condition Start: 11/30/18 16:38 Freq: Status: Active Protocol: Document 11/30/18 16:44 [facility] (Rec: 11/30/18 17:36 [facility] [id number]) Occupational Therapy Current Condition Current Condition Evaluation Date 11/30/18 Treatment Diagnosis S/p R KATHERINE anterior approach, weakness Diagnosis Onset Date 11/29/18 Post Operative Precautions Anterior Hip Precautions No Hip Extension No Hip External Rotation Weight Bearing Status Weight Bearing Status Weight Bear as Tolerated M3 OT- IP Subjective and Pain Start: 11/30/18 16:38 Freq: Status: Active Protocol: Document 12/02/18 12:02 [facility] (Rec: 12/02/18 12:10 [facility] [id number]) OT- Subjective Occupational Therapy Visit Type Type Treatment Note Visit Start Time 11:30 Visit Stop Time 11:50 Total Visit Minutes 20 Occupational Therapy Visit Comments Patient Comments Pt looking to go home today with a friend. OT Pain Assessment Pain When Pain Assessed At Rest Pain Present Pain Present Denied Pain M6 OT- IP Functional Cognition Start: 11/30/18 16:38 Freq: Status: Active Protocol: Document 12/02/18 12:02 [facility] (Rec: 12/02/18 12:10 [facility] [id number]) Cognitive Factors Limiting Selfcare Function Cognitive Ability Level of Alertness Alert Patient Orientation Name Year Day of Week Place Situation Attention Span Ability Capable of Focused Attention Capable of Sustained Attention Ability to Follow Commands Able to Follow Multi-Step Commands Memory Description Short Term Impaired Safety Awareness Underestimates Need for Assistance Problem Solving Ability Needs Assist to Identify Solutions Executive Function Ability Unable to Filter Distractions Unable to Remember Details Cognitive Comments Cognitive Assessment Comments Pt scored 110seconds for [place] Making Part B which is much improved from two days ago, however suggested best for pt to have a friend drive with her initially and then have friend ride with her. M7 OT- IP Mobility and Balance Start: 11/30/18 16:38 Freq: Status: Active Protocol: Document 12/02/18 12:02 [facility] (Rec: 12/02/18 12:10 [facility] [id number]) OT-Transfer Assessment Sit to and From Stand Sit to and from Stand Independent Transfers Transfer Ability Independent Technique Transfer Destination Chair Devices Transfer Assistive Devices Front Wheeled Walker Comments Mobility Comments Able to clarify with pt okay to take normal steps while walking forwards with FWW due to decreased pain and still having to start with left leg while going backwards. OT- Balance Assessment Sitting Balance and Reactions Static Sitting Balance Ability Normal Dynamic Sitting Balance Ability Normal Standing Balance and Reactions Static Standing Balance Ability Good Dynamic Standing Balance Ability Fair M8 OT- IP Objective Assessments Start: 11/30/18 16:38 Freq: Status: Active Protocol: Document 11/30/18 16:44 [facility] (Rec: 11/30/18 17:36 [facility] [id number]) OT Gross Range of Motion Upper Extremity Range of Motion Assessment Within Functional Limits OT Strength Comments Strength Comments BUE 4/5 OT- Coordination Assessment Comments Coordination Comments Arthritic changes in BUE, however able to use hands to marla socks. M9 OT- IP Assessment and Plan Start: 11/30/18 16:38 Freq: Status: Active Protocol: Document 12/02/18 12:02 [facility] (Rec: 12/02/18 12:10 [facility] [id number]) OT Summary Assessment and Plan Potential Rehabilitation Potential Good Analytic Complexity at Evaluation Low Summary Assessment Summary Pt doing better today , especially with safety awareness and memory and to go home with friend today. Goals Days to Meet Goals 1 Frequency of Treatment Frequency Of Treatment Once a Day Treatment Plan OT Treatment Plan ADL Training Functional Cognition Training Functional Mobility Patient/Family Education Discharge Planning Discharge Recommendations OT Discharge Recommendations Home with Assistance Home Health
== END 2018-12-02 12:17 | disposition home or self-care (01) | DRG 470 ==
PROVIDERS: Nurse Practitioner Adult Health; Admitting Provider Orthopaedic Surgery; PCP Family Medicine; Visit Provider Orthopaedic Surgery
PROC: 0SR902Z Replacement of Right Hip Joint with Metal on Polyethylene Synthetic Substitute, Open Approach (ICD-10-PCS; CPT 27130; principal; 2018-11-29 12:00)
DX: M16.11 Unilateral primary osteoarthritis, right hip (principal); M87.851 Other osteonecrosis, right femur; M81.0 Age-related osteoporosis without current pathological fracture; R03.0 Elevated blood-pressure reading, without diagnosis of hypertension; R01.1 Cardiac murmur, unspecified; E11.65 Type 2 diabetes mellitus with hyperglycemia; Z79.4 Long term (current) use of insulin
CPT/HCPCS: 36415; 72170; 73502; 76000; 80048; 82962; 85014; 85018; 94762; 97110; 97116; 97162; 97165; 97530; 97535; C1776; C9290; J0690; J2250; J2274; J2405; J2704; J2765; J3010

== ENCOUNTER 2022-08-18 05:48 | Day surgery (SDC) | payer MEDICARE, SELFPAY ==
[2018-11-29 17:15] VITALS: BMI 20.8
[2022-07-27 08:31] VITALS: BMI 20.5
[2022-08-18] VITALS (13 sets, daily range): BP systolic 93–149; BP diastolic 46–69; PULSE 40–51; RESP 12–20; TEMP 36.2–37.3; O2SAT 91–100; BMI 20.5
--- NOTE | 2022-08-18 06:38 | DI.RAD.S_ITS ---
PROCEDURE: XR HIP W PEL IF DONE LT 2V INDICATIONS: INNER OP TECHNIQUE: 4 intraoperative fluoroscopic views of pelvis and left hip acquired. COMPARISON: [facility], [place], XR HIP W PEL IF DONE RT 2V, 11/29/2018, 16:22. FINDINGS: Intraoperative fluoroscopic views of pelvis and left hip shows left total hip arthroplasty in progress. Hip alignment is anatomic. IMPRESSION: Fluoro guidance was provided intraoperatively for left total hip arthroplasty. Dictated by: Gian Pandey M.D. on 08/18/2022 at 13:19 Approved by: iGan Pandey M.D. on 08/18/2022 at 13:20
[2022-08-18] MEDS: PREGABALIN 75 MG CAPSULE PO (07:07)
[2022-08-18] MEDS: LACTATED RINGERS 1,000 ML 42 ML IV (07:07)
[2022-08-18] MEDS: VANCOMYCIN 1,000 MG/200 ML PIGGYBACK 200 MG IV (07:07)
[2022-08-18] MEDS: ACETAMINOPHEN 325 MG TABLET 975 MG PO (07:07)
[2022-08-18] MEDS: CELECOXIB 200 MG CAPSULE PO (07:07)
[2022-08-18 07:26] LABS: COVID19 -Nasal RAPID Negative (Negative)
--- NOTE | 2022-08-18 07:41 | PM.PREOP ---
Pre-operative Note COVID-19 COVID-19 status: Negative Interval Note History & Physical reviewed/Exam performed by Physician: Yes Changes to H&P: No
--- NOTE | 2022-08-18 07:42 | P.OP_ITS ---
Operative Date/Time/Diagnoses Date of procedure: 08/18/22 Time of procedure: 08:00 Pre-op diagnosis: left hip OA Post-op diagnosis: same Procedure & Clinicians Procedure: Left total hip arthroplasty anterior approach Same procedure as scheduled: Yes Indications: The patient has had progressively worsening left hip pain with radiographic montoya ges consistent with arthritis. Non-operative management has failed and the patient has requested total hip replacement. The risks, benefits and alternatives to surgery were discussed with the patient prior to proceeding. Risks discussed included, but were not limited to, failure to relieve pain, leg length discrepancy, dislocation, stiffness, infection, nerve damage, deep venous thrombosis, pulmonary embolism, stroke, coma, heart attack, permanent paralysis and , as well as the potential need for eventual revision of the prosthetic. 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 Patient was carefully positioned in the supine position. Time-out was performed and antibiotics were given. Anesthesia was induced. She was positioned in the on the table in order to allow hyperextension of the hip. The left lower extremity was prepped and draped in a standard sterile fashion. An anterior left hip incision was made 1 fingerbreadth lateral to the anterior superior iliac spine and extended distally towards the greater trochanter. Dissection was carried out through skin and subcutaneous tissues. Superficial hemostasis was achieved. The fascia over the tensor fascia davion was defined and incised with a knife. Two Allis clamps were used to grasp the fascia. Tensor fascia davion was retracted laterally. A gelpi retractor was placed. Dissection was carried out down along the neck. The circumflex vessels were carefully identified and cauterized with the Aqua Mantis. There was good visualization of the femoral neck. A Cobra was placed superior to the neck and the gluteus fibers were carefully stripped from that superior aspect of the capsule. A 2nd retractor was placed along the inferior aspect of the neck. The rectus insertion along the capsule was partially released. A 3rd retractor that was then gently placed over the rim of the acetabulum under the rectus. Capsule was carefully incised and released from the intertrochanteric line circumferentially superior to the mid sagittal line and inferiorly to the mid sagittal line until the lesser trochanter was palpable. A tag stitch was placed both in the superior and inferior limb of the capsular insertion. Along the acetabulum capsule was also released up to the mid sagittal 12:00 position. A portion of the labrum was resected. A saw was used to perform an osteotomy at the level of the intertrochanteric line and the junction of the superior femoral neck leaving approximately 1 finger breath of residual inferior neck above the lesser trochanter. A 2nd cut was made along the femoral neck at the base of the head and a napkin ring of neck was removed. Corkscrew was placed in the femoral head and the head was removed without difficulty. Retractors were then repositioned around the acetabulum. Residual labrum was resected and additional osteophytes were removed. A reamer that was 4 mm below the templated size was placed by hand in the acetabulum and it was reamed to centralize the acetabulum. It was then reamed up to 2 under the templated size and fluoroscopy was brought in to confirm the position of the reaming and depth of reaming. I reamed 1 under the anticipated size. A trial cup was placed and noted that it was appropriately sized and fluoroscopy confirmed position and depth. The component was open and inserted without difficulty fluoroscopic imaging was used to confirm that the cup had been adequately seated and was well positioned. It was further stabilized with a single screw. Neutral poly liner was placed. The cup was tested and noted to be stable. Attention was then directed to the femur. The femur was gently hyperextended additional capsular release was performed as needed in order to allow adequate visualization of the proximal femur with elevation of the femur. Patient was placed in a hyperextended slightly adducted position with maximum external rotation. Box osteotome was used to check for any residual neck as well as sclerotic bone along the trochanter. Skippers pepper was placed in the femur. Additional broaching was performed. Canal finder was used to determine the alignment of the canal and position. Size 1 broach was placed. The canal was then appropriately broached up to the templated size as long as there was adequate stability of the broach and serial advancement of the broach without excessive impingement. Specific attention was directed at avoiding varus attempting to direct the distal aspect of the broach more anteriorly and avoiding excessive anteversion. Trial reduction showed acceptable range of motion, good stability, no posterior impingement, yazdanism of leg length and appropriate lateral shuck. I also hyperflexed the hip and checked that there was no impingement anteriorly and there was good stability with flexion, adduction and internal rotation. Marcaine and Exparel were injected. The stem was placed without difficulty. Repeat trial reduction and x-ray showed acceptable overall position, length, and no evidence of the femoral fracture. Final head was placed. Wound was meticulously irrigated with normal saline. The hip was reduced and additional Exparel and Marcaine were injected. The capsule was closed with interrupted nonabsorbable sutures. The fascia of the tensor was closed with interrupted and running Vicryl. No drain was placed. Any tensor fascia davion muscle that appeared to be contused or injured which was a minimal amount was carefully resected. Capsule around the tensor was injected with Exparel and Marcaine. The skin was closed with barbed stitches for the subcutaneous tissue and skin. We also used surgical glue. The wound was dressed sterilely. Brief Betadine soak was also used and was meticulously irrigated with normal saline. Patient was transferred to recovery room in satisfactory condition. Post-operative Condition: stable Disposition: Acute Care Plan for aftercare: The patient will be maintained on a standard total hip replacement protocol with weight bearing as tolerated and anterior hip precautions. The patient will receive Aspirin and sequential compression devices for DVT prophylaxis. The patient will be discharged home when safe for the home environment. She has fairly brittle diabetic control and will ask for a hospitalist consult. She may need inpatient status because of her brittle diabetic control.
[2022-08-18] MEDS: CEFAZOLIN 2 GM/100 ML PREMIX 100 ML IV ×3 (07:50→23:58)
[2022-08-18] MEDS: TRANEXAMIC ACID 1,000 MG VIAL 1000 MG INJ ×2 (08:15→09:37)
--- NOTE | 2022-08-18 08:26 | SUR.OPER ---
Supine on padded [place] table with bilateral legs secured in padded positioning boots and suspended in positioning spars, operative leg in traction per surgeon. Head on one pillow. Arm on non-operative side secured on padded armboard <90 degrees abduction. Arm on operative side padded and resting across chest then secured with tape over sheet. Padded perineal post in place per surgeon.
[2022-08-18] MEDS: BUPIVACAINE LIPOSOME 266 MG/20 ML VIAL INJ (08:37)
[2022-08-18] MEDS: BUPIVACAINE 0.25% (PF) 60 ML, EPINEPHrine 0.3 MG INJ (08:37)
[2022-08-18] MEDS: INSULIN REGULAR 100 UNIT/ML 3 ML VIAL IV ×2 (09:15→09:48)
--- NOTE | 2022-08-18 09:17 | SUR.OPER ---
Blood glucose at 247 at 0855, 5 units humalin regular given
--- NOTE | 2022-08-18 09:42 | SUR.OPER ---
Blood glucose checked at 0942 at 218
--- NOTE | 2022-08-18 10:30 | DI.RAD.S_ITS ---
PROCEDURE: XR HIP W PEL IF DONE LT 2V INDICATIONS: POST OP LEFT ANTERIOR HIP TECHNIQUE: AP pelvis and lateral view of the left hip acquired. COMPARISON: [facility], [place], XR HIP W PEL IF DONE LT 2V, 08/18/2022, 8:59. FINDINGS: Bones: Patient is status post left hip arthroplasty, with hardware components in expected positions. The hip joint appears congruent. The visualized bony structures appear intact. Soft tissues: Overlying postoperative changes are noted. No suspicious soft tissue densities. IMPRESSION: Postop changes from left total hip arthroplasty with anatomic left hip alignment. Dictated by: Gian Pandey M.D. on 08/18/2022 at 13:22 Approved by: Gian Pandey M.D. on 08/18/2022 at 13:22
[2022-08-18] MEDS: ONDANSETRON 4 MG/2 ML INJ IV (11:36)
[2022-08-18] MEDS: LACTATED RINGERS 1,000 ML 100 ML IV ×2 (11:37→21:31)
--- NOTE | 2022-08-18 12:13 | PC.NURSE ---
pt arrived at 1050 oriented to call and bed alarm on. Patient A&O. plan of care discussed and pt resting comfortably
--- NOTE | 2022-08-18 14:11 | PM.CN ---
History of Present Illness Consult details Date Patient Seen: 08/18/22 Time Patient Seen: 14:11 Chief complaint: LT KATHERINE *OPB* Narrative: Melody Weems is a 72yo F with PMH of late-onset DM1, right hip arthroplasty, and raynaud's who was admitted for left total hip replacement which she underwent on 08/[address] Alyse Flores. Medicine team consulted for management of her diabetes while inpatient. Patient received her 22u of lantus last night then 15u of humalog during surgery and currently has a BG of 58. She hasn't eaten anything since after surgery due to nausea. She is currently without pain in her hip and feels well. She is wanting to try some food. She is receiving zofran and reglan PRN for nausea. Hip surgery went well and she is quite excited for her new hip. Meds Home Medications and Allergies Home Medications Medication Instructions Recorded Confirmed Type insulin glargine U-300 conc 300 22 unit SUBCUT QPM 11/16/18 08/18/22 History unit/mL (3 mL) subcutaneous pen (Toujeo Max U-300 SoloStar) insulin lispro 100 unit/mL 3 unit SUBCUT TID-QID 11/16/18 08/18/22 History subcutaneous pen (Humalog KwikPen (U-100) Insulin) melatonin 1 mg tablet 2 mg PO BEDTIME PRN Sleep 11/29/18 08/18/22 History gabapentin 300 mg capsule 300 mg PO BEDTIME 07/27/22 08/18/22 History Allergies Allergy/AdvReac Type Severity Reaction Status Date / Time No Known Drug Allergies Allergy Verified 08/18/22 07:05 Review of Systems Review of Systems Narrative: All other systems reviewed with the patient and are negative unless otherwise stated. Exam Vital Signs (past 8 hours): - 08/18/22 07:17 08/18/22 10:06 08/18/22 10:13 Temperature 97.1 F L 99.1 F Pulse Rate 48 L 51 L 47 L Respiratory Rate 20 12 14 Blood Pressure 148/69 H 108/55 L 101/50 L Pulse Oximetry 100 97 99 Oxygen Delivery Method Room Air Room Air Room Air Oxygen Flow Rate 08/18/22 10:23 08/18/22 10:34 08/18/22 11:00 Temperature 98.1 F Pulse Rate 45 L 45 L 46 L Respiratory Rate 14 16 17 Blood Pressure 109/49 L 111/58 L 148/66 H Pulse Oximetry 98 97 98 Oxygen Delivery Method Room Air Room Air Oxygen Flow Rate 0 08/18/22 11:30 Temperature Pulse Rate 40 L Respiratory Rate 17 Blood Pressure 123/55 L Pulse Oximetry 100 Oxygen Delivery Method Oxygen Flow Rate 0 Oxygen Delivery Method Room Air Oxygen Flow Rate 0 Narrative Exam Narrative: GEN: no acute distress HEENT: moist mucous membranes, PERRL NECK: trachea midline, no JVD CV: regular rate and rhythm, no murmurs PULM: clear bilaterally ABD: soft, nontender, nondistended, no organomegaly EXT: warm and well perfused with no edema NEURO: awake, alert, oriented, no focal deficits Objective Labs Labs: Laboratory Results - last 24 hr 08/18/22 06:50 SARS-CoV-2 (PCR) Negative [facility] Medical History (Updated 07/27/22 @ 14:58 by Summer Watson RN) Bradycardia Dermatitis Diabetes type I Fracture of left clavicle Primary osteoarthritis of right hip Psoriasis Raynaud's disease Shingles (10/2021) Surgical History History of total right hip arthroplasty Hx of elbow surgery Family History (Updated 11/29/18 @ 20:12 by KENISHA Márquez) Father Cardiac disease Congestive heart failure COPD (chronic obstructive pulmonary disease) Mother Diabetes mellitus Iliac aneurysm Degenerative joint disease (DJD) of lumbar spine Brother In good health Social History household members: none Tobacco & Substance Use Smoking Status: Never smoker alcohol intake: former Assessment & Plan Assessment & Plan narrative: # late-onset type 1 diabetes -had some hypoglycemia following surgery due to lack of po intake -patient to try eating here soon -lower lantus to 10u nightly, SSI from high to med dose and hold pre-meal insulin for now. Patient agrees with this plan. -goal BG 140-180 -check A1c # s/p left total hip replacement -Dr. Flores managing Medicine will continue to follow. Thank you for allowing us to participate in the care of this patient. Should you have any questions, do not hesitate to speak with us directly or call us.
--- NOTE | 2022-08-18 15:20 | PT.IIE ---
Current Diagnoses Idiopathic aseptic necrosis of left femur (08/18/22) Surgery Performed Operation Date: 08/18/22 07:45 Actual Procedures p Total Hip Arthroplasty/Anterior Approach(Left) - Alyse Flores MD Surgical History (Last Reviewed 11/29/18 @ 20:00 by KENISHA Márquez) History of total right hip arthroplasty Hx of elbow surgery Medical History (Last Updated 07/27/22 @ 14:58 by Summer Watson RN) Bradycardia Dermatitis Diabetes type I Fracture of left clavicle Primary osteoarthritis of right hip Psoriasis Raynaud's disease Shingles (10/2021) Physical Therapy Inpatient Evaluation/Re-Eval M1 PT/OT-IP Prior Functional Status Start: 08/18/22 12:22 Freq: NEEDED Status: Active Protocol: Document 08/18/22 15:20 [facility] (Rec: 08/18/22 19:00 [facility] [id number]) Medical Review Prior Functional Status Medical History Reviewed Yes Diet/Fluid Consistency Regular Communication WNL Mobility and Gait indep in home no AD and typically goes for walks and hikes w/sticks Activities of Daily Living and IADL's indep w/ADLs; has 2 horses and some property which she takes care of herself, drives Social History Household Members none Living Arrangements House Number of Floors (Floors) Two Floors Number of Stairs To Enter/Railing? 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; lives on [place] M2 PT-IP Current Condition Start: 08/18/22 12:22 Freq: NEEDED Status: Active Protocol: Document 08/18/22 15:20 [facility] (Rec: 08/18/22 19:00 [facility] [id number]) Physical Therapy Current Condition Current Condition Evaluation Date 08/18/22 Treatment Diagnosis L KATHERINE ant M3 PT-IP Subjective Start: 08/18/22 12:22 Freq: NEEDED Status: Active Protocol: Document 08/18/22 15:20 [facility] (Rec: 08/18/22 19:00 [facility] [id number]) Subjective Physical Therapy Visit Type Type Initial Evaluation Visit Start Time 14:35 Visit Stop Time 15:17 Total Visit Minutes 42 Number of ALLERGIST/IMMUNOLOGIST PHYSICIAN Visits 0 Therapy Pain Assessment Pain When Pain Assessed During Mobility Pain Present Pain Present Pain Reported Location right hip Pain Management Techniques Re-positioning M4 PT-IP Mobility and Gait Start: 08/18/22 12:22 Freq: NEEDED Status: Active Protocol: Document 08/18/22 15:20 [facility] (Rec: 08/18/22 19:00 [facility] [id number]) PT-Bed Mobility Assessment Supine to Sit Supine to Sit Standby Assistance Scooting Scooting to Edge of Bed Standby Assistance PT-Transfer Assessment Sit to and From Stand Sit to and from Stand Contact Guard Assistance,Use of Upper Extremities Equipment Transfer Assistive Device Gait Belt,Front Wheeled Walker Orthotic/Prosthetic Devices or Brace: No Transfers Transfer Destination Chair Transfer Technique Stand Step Pivot Transfer Ability Level of Assist Contact Guard Assistance Comments Mobility Comments supine BP 137/41 to steated 132/52 and after transfer 140/ 53; supine to sit SBA w/cues. Pt amb around bed to window then to chair CGA w/FWW 15 ft. Pt felt a little lightheaded but BP okay. Pt felt better and asked to go to the bathroom. Pt amb 10ft w/FWW to toilet and did sit to stand SBA w/bar and cues and wiped indep w/CGA then amb 10ft FWW to chair. pt had 250cc emesis which was reported to nurse and pt left w/call light in reach. Gait Assessment Gait Gait Assistance Required: Contact Guard Assist Distance (Feet) 35 Able to Maintain Weight Bearing Status Yes During Gait Assistive Devices Assistive Device Gait Belt,Front Wheeled Walker Orthotic/Prosthetic Devices or Brace: No Gait Deviations General Gait Pattern Antalgic,Decreased Stride Length,Decreased Feet Clearance Factors Limiting Gait Function Factors Limiting Gait Function Decreased Activity Tolerance, Decreased Strength,Pain PT-Balance Assessment Sitting Balance and Reactions Static Sitting Balance Ability Normal Dynamic Sitting Balance Ability Normal Standing Balance and Reactions Static Standing Balance Ability Good Dynamic Standing Balance Ability Fair Device Used FWW M5 PT-IP Objective Assessments Start: 08/18/22 12:22 Freq: NEEDED Status: Active Protocol: Document 08/18/22 15:20 [facility] (Rec: 08/18/22 19:00 [facility] [id number]) Orientation Orientation/Cognition Level of Alertness Alert Language Function Ability No Deficits Noted Safety Awareness Understands Safety Issues Memory Description No Deficits Noted Gross Range of Motion Lower Extremity ROM Assessment Left Impaired Strength Lower Extremity Strength Assessment Left Impaired M6 PT-IP Treatment Start: 08/18/22 12:22 Freq: NEEDED Status: Active Protocol: Document 08/18/22 15:20 [facility] (Rec: 08/18/22 19:00 [facility] [id number]) Physical Therapy Treatment Exercises Exercises Ankle Pumps Education Education Provided Precautions,Weight Bearing Status,Post-Op Packet,Safety M7 PT-IP Assessment and Plan Start: 08/18/22 12:22 Freq: NEEDED Status: Active Protocol: Document 08/18/22 15:20 [facility] (Rec: 08/18/22 19:00 [facility] [id number]) PT Summary Assessment and Plan Potential Rehabilitation Potential Excellent Status of Condition at Evaluation Evolving Summary Impairments Pain,ROM,Strength,Balance,Bed Mobility,Transfers,Gait, Activity Tolerance Assessment Summary Pt is day of L KATHERINE ant approach w/good pain control and high motivation to get home again. She will have help w/heavier activities around the house but will otherwise have to be indep. She did well w/mobiltiy but did have emesis after mobility. She is likely to cont to advance w/ mobility and would benefit from skilled PT to work on mobility for safety home. Goals Bed Mobility Goal Independent Transfer Goal Independent Gait Goal Independent Gait Distance 150ft Other Goals up/down 10 stairs w/rail indep Days to Meet Goals 5 Frequency of Treatment Frequency Of Treatment Twice a Day Treatment Plan Physical Therapy Treatment Plan Bed Mobility Training,Transfer Training,Gait Training, Therapeutic Exercise,Balance Retraining,Post Op Education, Discharge Planning,Hot or Cold Pack,Neuromuscular Re-ed, Coordination Retraining,Manual Therapy Precautions Anterior Hip Precautions No Hip Extension,No Hip External Rotation Weight Bearing Status Weight Bearing Status Weight Bear as Tolerated Recommendations To Nursing Amount of Assist Needed 1 Person Assist Discharge Recommendations PT Discharge Recommendations Home with Assistance, Outpatient PT Transportation Needs at Discharge Private Vehicle
[2022-08-18] MEDS: ACETAMINOPHEN 325 MG TABLET 650 MG PO ×2 (15:53→21:16)
[2022-08-18] MEDS: IBUPROFEN 400 MG TABLET PO ×2 (15:53→21:14)
[2022-08-18] MEDS: METOCLOPRAMIDE 10 MG/2 ML INJ IV (16:52)
--- NOTE | 2022-08-18 17:48 | PC.NURSE ---
Shift summary: VSS. Patient denies pain. Patient had low blood glucose after surgery, having been unable to eat due to nausea. Patient was able to tolerate apple juice and yogurt, with some residual nausea and emesis after ambulating. Patient tolerated P.T., using walker and 1 PA assist. Patient able to void in toilet. Currently tolerated dinner and resting in bed. Call light within reach. Patient anticipating discharge tomorrow to home with her friend.
[2022-08-18] MEDS: GABAPENTIN 300 MG CAPSULE PO (21:14)
[2022-08-18] MEDS: DOCUSATE 100 MG CAPSULE PO (21:15)
[2022-08-18] MEDS: ASPIRIN EC 81 MG TABLET PO (21:15)
[2022-08-18] MEDS: INSULIN GLARGINE 100 UNIT/ML 3ML PEN 10 UNIT SUBCUT (21:22)
[2022-08-18] MEDS: INSULIN LISPRO 100 UNIT/ML 3ML VIAL SUBCUT (21:23)
[2022-08-19] MEDS: ACETAMINOPHEN 325 MG TABLET 650 MG PO ×2 (03:32→09:59)
[2022-08-19] MEDS: IBUPROFEN 400 MG TABLET PO ×2 (03:32→09:59)
[2022-08-19 03:53] VITALS: BP 110/44; PULSE 51; RESP 17; TEMP 36.5; O2SAT 97
[2022-08-19 06:33] LABS: Hemoglobin 11.2 g/dL (12.0-16.0)
[2022-08-19 06:39] LABS: Hemoglobin A1C% w Est Avg Glu 7.4 % (4.0-6.0)
--- NOTE | 2022-08-19 06:58 | PM.DS.1 ---
History of Present Illness History of Present Illness Date Patient Seen: 08/19/22 Time Patient Seen: 06:58 Chief complaint: LT KATHERINE *OPB* Narrative: Operative Date/Time/Diagnoses Date of procedure: 08/18/22 Time of procedure: 08:00 Pre-op diagnosis: left hip OA Post-op diagnosis: same Procedure & Clinicians Procedure: Left total hip arthroplasty anterior approach Same procedure as scheduled: Yes Indications: The patient has had progressively worsening left hip pain with radiographic changes consistent with arthritis. Non-operative management has failed and the patient has requested total hip replacement. The risks, benefits and alternatives to surgery were discussed with the patient prior to proceeding. Risks discussed included, but were not limited to, failure to relieve pain, leg length discrepancy, dislocation, stiffness, infection, nerve damage, deep venous thrombosis, pulmonary embolism, stroke, coma, heart attack, permanent paralysis and , as well as the potential need for eventual revision of the prosthetic. Surgeon: Alyse Flores Disbursing Agent: Ludy Patricio Anesthesia Type: General and Spinal Operative Notes Findings: Severe left hip arthritis with evidence of avascular necrosis Closure Type: primary Specimen(s): none sent Prosthetic devices, grafts, tissues, transplants, or devices: Flores and nephew anthology standard offset size 8, 52 R3 cup, neutral poly liner, 36 x -3 Oxinium head,one 6.5 mm screw Estimated Blood Loss (mL): 250 Blood products transfused: none Discharge Providers Provider Discharge Date: 08/19/22 Primary care physician: Yesenia Leo MD Consults: 07/27/22 15:27 Consult to Anesthesiology Routine Comment: Consulting Provider: Anesthesiologist Reason for consultation: Surgeon requested re: IDDM 08/18/22 06:38 Consult to Anesthesiology Routine Comment: Consulting Provider: Anesthesiologist Reason for consultation: Regional block for post operative pain control 08/18/22 10:27 Consult to Discharge Planning Routine Comment: Consult to Hospitalist Service Routine Comment: Consulting Provider: Demarco Cooper Reason for consultation: diabetic management Has provider been notified: Yes Consult to Physical Therapy Evaluate & Treat Comment: Physician Instructions: post op KATHERINE protocol Discharge provider: Carmen Calix PA-C Summary Hospital Course Discharge Diagnosis: Left hip osteoarthritis, s/p left total hip arthroplasty Type I DM Acute anemia d/t expected surgical blood loss h/o bradycardia Hospital Course: Ms Weems's hospital course was unremarkable. On POD# 1 she was feeling well and wanted to go home. She was eating and voiding without difficulty. She was evaluated by PT and felt to be safe for discharge home. Exam Vital Signs (past 8 hours): - 08/18/22 23:37 08/19/22 03:53 Temperature 97.2 F L 97.7 F Pulse Rate 45 L 51 L Respiratory Rate 17 17 Blood Pressure 93/48 L 110/44 L Pulse Oximetry 94 97 Oxygen Flow Rate 0 0 Oxygen Delivery Method Room Air Oxygen Flow Rate 0 Narrative Exam Narrative: 5/5 strength in hip flexors, quadriceps, hamstrings, DF, PF, and EHL on left. Sensation to light touch intact throughout LLE. Calves soft, compressible, nontender and without palpalable cords or masses. Aquacel dressing CDI. Objective Labs 08/19/22 06:00 Labs: Laboratory Results - last 24 hr 08/18/22 0308/19/22 06:50 06:00 06:00 Hgb 11.2 L Hct 33.0 L Hemoglobin A1c 7.4 H SARS-CoV-2 (PCR) Negative [facility] Medical History (Updated 07/27/22 @ 14:58 by Summer Watson RN) Bradycardia Dermatitis Diabetes type I Fracture of left clavicle Primary osteoarthritis of right hip Psoriasis Raynaud's disease Shingles (10/2021) Surgical History History of total right hip arthroplasty Hx of elbow surgery Family History (Updated 11/29/18 @ 20:12 by KENISHA Márquez) Father Cardiac disease Congestive heart failure COPD (chronic obstructive pulmonary disease) Mother Diabetes mellitus Iliac aneurysm Degenerative joint disease (DJD) of lumbar spine Brother In good health Social History household members: none Smoking Status: Never smoker alcohol intake: former Discharge Assessment & Plan Assessment and Plan Assessment: Left hip osteoarthritis, s/p left total hip arthroplasty Type I DM Acute anemia d/t expected surgical blood loss h/o bradycardia Plan of Treatment: Discharge home. No intervention/medication change needed for medical issues. Pt has APAP, NSAIDs, and ASA at home. Outpt PT as scheduled, f/u in office in 2 weeks. Discharge Plan Discharge Plan Patient Disposition: Home Discharge orders & Medications Discharge Orders: Discharge (Order); Ordered 03/29/23 Ordered By: Carmen Calix Prescriptions: New oxycodone 5 mg Tablet 5 mg PO Q4-6H PRN (Reason: Pain, Moderate (4-6)) Qty: 20 0RF Continued insulin lispro [Humalog KwikPen Insulin] 100 unit/mL Insulin Pen 3 unit SUBCUT TID-QID Rx Instructions: Before each meal Toujeo Max U-300 SoloStar 300 unit/mL (3 mL) Insulin Pen 22 unit SUBCUT QPM Rx Instructions: With evening meal melatonin 1 mg Tablet 2 mg PO BEDTIME PRN (Reason: Sleep) gabapentin 300 mg Capsule 300 mg PO BEDTIME Follow up/Referrals: Yesenia Leo MD [Primary Care Provider] - Alyse Flores MD [Physician] - As previously scheduled (Follow up w/ Tiffanie Lindsey PA-C, on 08/31/2022 @ 11:00 am at [facility].) Diet/Activity/Treatments Diet: Diet as Tolerated Activity: Weightbearing as tolerated to left leg. Anterior hip precautions. Cold/Heat Therapy: Ice to hip as needed for pain. Skin/Wound/Dressing Care Report to your healthcare provider any signs of infection, such as:: chills, fever, night sweats, unusual drainage and unusual redness Dressing: May shower. Leave Aquacel dressing in place until follow up in office. No bathing or otherwise soaking incision. Call the office if the dressing becomes saturated inside. Visit Report/Discharge Packet Instructions: DI for Hip Replacement Stand Alone Forms: Patient Portal/API, Surgery Discharge Discharge Data Primary Care Provider: Yesenia Leo Attending Provider: Alyse Flores Quality VTE Deep Vein Thrombosis/Pulmonary Embolism Present on Admission: No
[2022-08-19 07:00] VITALS: BP 101/45; PULSE 46; RESP 17; TEMP 36.7; O2SAT 100
[2022-08-19] MEDS: INSULIN LISPRO 100 UNIT/ML 3ML VIAL SUBCUT (07:55)
[2022-08-19] MEDS: ASPIRIN EC 81 MG TABLET PO (07:56)
[2022-08-19] MEDS: DOCUSATE 100 MG CAPSULE PO (08:12)
--- NOTE | 2022-08-19 08:32 | PM.PN.1 ---
Subjective Subjective Interval history: Patient feeling well and will discharge today per ortho. BG this morning is 226. Exam Vital Signs (past 8 hours): - 08/19/22 03:53 Temperature 97.7 F Pulse Rate 51 L Respiratory Rate 17 Blood Pressure 110/44 L Pulse Oximetry 97 Oxygen Flow Rate 0 Oxygen Delivery Method Room Air Oxygen Flow Rate 0 Narrative Exam Narrative: GEN: no acute distress HEENT: moist mucous membranes, PERRL NECK: trachea midline, no JVD CV: regular rate and rhythm, no murmurs PULM: clear bilaterally ABD: soft, nontender, nondistended, no organomegaly EXT: warm and well perfused with no edema NEURO: awake, alert, oriented, no focal deficits Objective Labs 08/19/22 06:00 Labs: Laboratory Results - last 24 hr 08/19/22 08/19/22 06:00 06:00 Hgb 11.2 L Hct 33.0 L Hemoglobin A1c 7.4 H PFS Medical History (Updated 07/27/22 @ 14:58 by Summer Watson RN) Bradycardia Dermatitis Diabetes type I Fracture of left clavicle Primary osteoarthritis of right hip Psoriasis Raynaud's disease Shingles (10/2021) Surgical History History of total right hip arthroplasty Hx of elbow surgery Family History (Updated 11/29/18 @ 20:12 by KENISHA Márquez) Father Cardiac disease Congestive heart failure COPD (chronic obstructive pulmonary disease) Mother Diabetes mellitus Iliac aneurysm Degenerative joint disease (DJD) of lumbar spine Brother In good health Social History household members: none Smoking Status: Never smoker alcohol intake: former Assessment & Plan Assessment & Plan narrative: # late-onset type 1 diabetes -had some hypoglycemia following surgery due to lack of po intake, now 226 next AM -lower lantus to 10u nightly, SSI from high to med dose and hold pre-meal insulin for now. Patient agrees with this plan. -goal BG 140-180 -A1c near goal at 7.4% -resume home insulin regimen on discharge # s/p left total hip replacement -Dr. Flores managing Medicine will sign off today. Thank you for allowing us to participate in the care of this patient. Should you have any further questions, do not hesitate to speak with us directly or call us. Quality VTE Deep Vein Thrombosis/Pulmonary Embolism Present on Admission: No
--- NOTE | 2022-08-19 08:52 | PT.IPTN ---
Current Diagnoses Idiopathic aseptic necrosis of left femur (08/18/22) Surgery Performed Operation Date: 08/18/22 07:45 Actual Procedures p Total Hip Arthroplasty/Anterior Approach(Left) - Alyse Flores MD Physical Therapy Treatment Note M2 PT-IP Current Condition Start: 08/18/22 12:22 Freq: NEEDED Status: Active Protocol: Document 08/19/22 08:28 SP (Rec: 08/19/22 11:59 SP [id number]) Physical Therapy Current Condition Current Condition Evaluation Date 08/18/22 Treatment Diagnosis L KATHERINE ant M3 PT-IP Subjective Start: 08/18/22 12:22 Freq: NEEDED Status: Active Protocol: Document 08/19/22 08:28 SP (Rec: 08/19/22 11:59 SP [id number]) Subjective Physical Therapy Visit Type Type Treatment Note Visit Start Time 08:28 Visit Stop Time 08:52 Total Visit Minutes 24 Number of SENIOR CYBER INTELLIGENCE ANALYST Visits 1 Physical Therapy Visit Comments Patient Comments Pt willing to work with therapy, stated just used the bathroom with nursing. Patient Goals return home with friend to assist her, will be calling to make outpatient appts, has transportation. Therapy Pain Assessment Pain When Pain Assessed During Mobility Pain Present Pain Present Pain Reported Location right hip Scale Used very low, will be getting Tylenol again soon. Pain Management Techniques Distraction,Timing of Activity with Medications M4 PT-IP Mobility and Gait Start: 08/18/22 12:22 Freq: NEEDED Status: Active Protocol: Document 08/19/22 08:28 SP (Rec: 08/19/22 11:59 SP [id number]) PT-Transfer Assessment Sit to and From Stand Sit to and from Stand Standby Assistance,Use of Upper Extremities Equipment Transfer Assistive Device Gait Belt,Front Wheeled Walker Orthotic/Prosthetic Devices or Brace: No Transfers Transfer Destination Chair Transfer Technique pt ambulated with FWW Transfer Ability Level of Assist Standby Assistance,Use of Upper Extremities Comments Mobility Comments Pt seated in chair when arrived, just used with bathroom with nursing. SENIOR CYBER INTELLIGENCE ANALYST reviewed post op HEP: AP, HS ( seated hip/knee flexion), LAQ good form and ROM, very low pain. STS cues for pushing from chair arms not on FWW and review reaching back before sit for slow descent. Gait to stairs w/ FWW approx 120 ft and back, ascend/descend 9 stairs BHR then 9 stairs L HR to assimulate going upstairs at home in case wants to brief rests standing then returned to room. Pt good recall to precautions and cues only small step during pivot and carryover good maintaining. Pt is ok return home with friend to assist her when medically cleared and will be calling to set up outpatient therapy. Gait Assessment Gait Gait Assistance Required: Standby Assistance Distance (Feet) 240 Able to Maintain Weight Bearing Status Yes During Gait Assistive Devices Assistive Device Gait Belt,Front Wheeled Walker Orthotic/Prosthetic Devices or Brace: No Gait Deviations General Gait Pattern Antalgic,Decreased Stride Length,Decreased Feet Clearance Factors Limiting Gait Function Factors Limiting Gait Function Decreased Activity Tolerance, Decreased Strength,Pain,Poor Safety Awareness Comments Gait Comments Cues for more proximal to FWW with tall posturing demonstrated beter foot clearance and good stride for maintaining precautions, cued for small step pivoting. Stair Climbing Assessment Evaluation Level of Assist On Stairs Standby Assistance Devices Stair Climbing Assistive Devices Left Railing,Right Railing Technique/Endurance Stair Climbing Direction Ascend and Descend Stair Climbing Technique Step to Step Number of Steps Climbed 3 Stair Climbing Set # Repetitions (reps) 6 Comments Stair Climbing Comments See mobility comments. Pt stated doesn't need do stairs but glad trialed and completed to use at home. Knows can place chair on landing to allow rest. Occaional cues for BUE on L HR 2nd flight to assimulated home, good stability and proper step sequencing. PT-Balance Assessment Sitting Balance and Reactions Static Sitting Balance Ability Normal Dynamic Sitting Balance Ability Normal Standing Balance and Reactions Static Standing Balance Ability Good Dynamic Standing Balance Ability Good Device Used FWW M5 PT-IP Objective Assessments Start: 08/18/22 12:22 Freq: NEEDED Status: Active Protocol: Document 08/18/22 15:20 [facility] (Rec: 08/18/22 19:00 [facility] [id number]) Orientation Orientation/Cognition Level of Alertness Alert Language Function Ability No Deficits Noted Safety Awareness Understands Safety Issues Memory Description No Deficits Noted Gross Range of Motion Lower Extremity ROM Assessment Left Impaired Strength Lower Extremity Strength Assessment Left Impaired M6 PT-IP Treatment Start: 08/18/22 12:22 Freq: NEEDED Status: Active Protocol: Document 08/19/22 08:28 SP (Rec: 08/19/22 11:59 SP [id number]) Physical Therapy Treatment Exercises Exercises Ankle Pumps,Seated Knee Flexion/Extension Education Education Provided Precautions,Weight Bearing Status,Post-Op Packet,Safety Other Treatments Other Treatment Performed good recall and performance of precautions M7 PT-IP Assessment and Plan Start: 08/18/22 12:22 Freq: NEEDED Status: Active Protocol: Document 08/19/22 08:28 SP (Rec: 08/19/22 11:59 SP [id number]) PT Summary Assessment and Plan Potential Rehabilitation Potential Excellent Status of Condition at Evaluation Evolving Summary Impairments Pain,ROM,Strength,Balance,Bed Mobility,Transfers,Gait, Activity Tolerance Progress Towards Goals Progressing Toward Goals,Slow Progress due to Pain Assessment Summary Recommending SBA/S during gait w/ FWW, complete stairs mgt for home if wish to perform, not needed to. Pt is ok return home with friend to assist her when medically cleared and will be calling to set up outpatient therapy. Goals Bed Mobility Goal Independent Transfer Goal Independent Gait Goal Independent Gait Distance 150ft Other Goals up/down 10 stairs w/rail indep Days to Meet Goals 5 Frequency of Treatment Frequency Of Treatment Twice a Day Treatment Plan Physical Therapy Treatment Plan Bed Mobility Training,Transfer Training,Gait Training, Therapeutic Exercise,Balance Retraining,Post Op Education, Discharge Planning,Hot or Cold Pack,Neuromuscular Re-ed, Coordination Retraining,Manual Therapy Other Recommendations and Next Treatment check ROM, post op ex supine, Focus check safety cues proper hand placement. Continue further gait and standing HEP and balance activities can be progressed. Precautions Anterior Hip Precautions No Hip Extension,No Hip External Rotation Weight Bearing Status Weight Bearing Status Weight Bear as Tolerated Recommendations To Nursing Amount of Assist Needed Standby Assistance Discharge Recommendations PT Discharge Recommendations Home with Assistance, Outpatient PT Transportation Needs at Discharge Private Vehicle
--- NOTE | 2022-08-19 09:32 | CM.DANOTE ---
Initial DCP Assessment Note Pt is a 72 yo female, resident of [facility], now POD#1 from Total Hip Arthroplasty/Anterior Approach(Left) - Alyse Flores MD PCP: Yesenia Birch Payer: [facility]/MARY ELLEN Reviewed chart, Therapy has cleared pt for return home w/family to assist and pt has planned for home, DC order from Ortho has already been initiated this morning. No barriers identified at this time to patient's safe discharge home w/friends and family to assist; close outpatient f/u recommended. ADRIANNA Meyer Discharge Planning/Care Management CM Discharge Assessment Start: 08/19/22 09:30 Freq: Status: Active Protocol: Document 08/19/22 09:30 ZIA (Rec: 08/19/22 09:32 ZIA [id number]) Discharge Planning Assessment Assigned Valve Grinder ADRIANNA Collins DPOA/Assigned Designee Name Korina Morris, friend ([facility]) Contact Information [phone] Advance Directives? Yes Advance Directives on File No History Provided By Patient,Medical Record Prior Living Arrangements House Household Members none Type of transporation used prior to Drives own vehicle admit Independent with ADL's Yes Is patient alert and oriented? Yes Patient/Family Preference OP PT Therapy Barriers to Discharge No Discharge Plan Home Transportation Arrangement Friend to provide transport. Patient will need priority boarding pass to return to [facility] . Referrals Initiated None needed
[2022-08-19] MEDS: DEXTROSE 50 % IN WATER 25 GM/50 ML SYRINGE IV (12:22)
--- NOTE | 2022-08-19 13:53 | PC.NURSE ---
Patient is A&OX3, VSS (per baseline bradycardic) on RA. She is able to ambulate using FWW and SBA to void. She reports pain is minimal to L hip and well controlled with scheduled Tylenol and Ibuprofen. prior to noon she has a bg of 34 and upon repeat 33. She denies sweating, or feeling weak, or any other symptoms. She is given juice and yogurt and BG only up to 51. She is then given 1 amp dextrose and BG improved to 156. Hospitalist notified of BG and improvement and cleared for discharge. Aquacel to L hip C/D/I She is cleared by PT for discharge home today back to [facility]. She verbalizes understanding of hip precautions, medications, site care, s/sx of complications as well as follow up Care. Her [place]. At [place] 1300 pm she is escorted by RN via w/ch to private vehicle with her friend and all of her belongings.
== END 2022-08-19 13:00 | disposition home or self-care (01) ==
LOC: OR 05:50 → AC 05:50
PROVIDERS: Student in an Organized Health Care Education/Training Program; PCP Family Medicine; Referring Provider Family Medicine Geriatric Medicine; Visit Provider Orthopaedic Surgery
PROC: (CPT 27130; principal; 2022-08-18 07:45)
DX: M16.12 Unilateral primary osteoarthritis, left hip (principal); M87.052 Idiopathic aseptic necrosis of left femur; Z20.822 Contact with and (suspected) exposure to COVID-19; E11.9 Type 2 diabetes mellitus without complications; Z79.4 Long term (current) use of insulin; Z96.41 Presence of insulin pump (external) (internal)
CPT/HCPCS: 27130; 36415; 73502; 76000; 82962; 83036; 85014; 85018; 87635; 97116; 97162; 97530; C1776; C9803; C9290; J0171; J0690; J1815; J2250; J2274; J2405; J2704; J2765; J3010

== ENCOUNTER 2025-02-28 08:23 | Outpatient (CLI) | payer MEDICARE, SELFPAY ==
[2022-08-18 11:54] VITALS: BMI 20.5
[2025-02-28 09:10] VITALS: BP 105/57; PULSE 50; RESP 16; TEMP 36.3; O2SAT 97
[2025-02-28 09:22] VITALS: BP 114/5; PULSE 56; RESP 12; O2SAT 98
[2025-02-28] MEDS: LIDOCAINE 1% (PF) 5 ML INJ (09:34)
[2025-02-28 09:40] VITALS: BP 130/60; PULSE 50; RESP 16; O2SAT 98
--- NOTE | 2025-02-28 10:44 | PM.PROC.IR.1 ---
Date/Time/Diagnoses Date of procedure: 02/28/25 Time of procedure: 09:00 Pre-procedure diagnosis: Lumbar stenosis, lumbar radiculopathy Post-procedure diagnosis: same Procedure Notes Procedure: Interlaminar epidural steroid injection L3-4 Indications: Lumbar stenosis, lumbar radiculopathy Physician: Jose Ann Total sedation minutes: 0 Complications: none Procedure in detail & Post-procedure care: Patient is here for the planned procedure today as noted. No significant change since the last office visit. For additional clinical scenario please see those office notes. Focused exam: Vital signs reviewed as charted on intake. Gen: Well developed. No acute distress. Thin. CV: RRR, no M/R/G Chest: Non-labored breathing, CTAB. Psych: Alert and well-oriented. Mood/Affect: normal. Patient suitable for the planned procedure today: Yes === The following procedure was performed in the office today: Lumbar Epidural Steroid Injection with fluoroscopic guidance - Interlaminar approach (97335) Levels Treated: L3-4 Approach: interlaminar Soft tissue: [1% lidocaine 1.5 mL] Test dose: [1% lidocaine 0.5 mL] Injectate: 1 mL of dexamethasone (10mg/mL) in 0.5 mL 1% lidocaine and 2 mL normal saline Fluoroscopy Agent: Isovue 300-M 1.5 mL Notes: 1- History IDDM, A1c 7.6, blood glucose this morning 87. Modified steroid dosage utilized. Discussed associated risks again with the patient and her brother. They will monitor blood glucose levels carefully report any significant elevations. 2- Right paramedian approach towards midline. 3.5 in 20 gauge Touhy needle utilized and adequate. Preprocedure pain 7/10, postprocedure pain 5/10. Procedure: After discussing the risks, benefits, and alternatives to the procedure, the patient expressed understanding and wished to proceed. The risks include but are not limited to infection, allergic reaction, nerve damage, stroke, paralysis, epidural hematoma, syncope, headache, respiratory or cardiac arrest, spinal cord injury, and scar formation. Informed consent was obtained and all patient questions were answered. The patient was brought to the procedure suite and placed in the prone position. A pre-procedural pause was conducted to verify: correct patient identity, procedure to be performed and as applicable, correct side and site, correct patient position, and any special requirements. Using a paramedian approach from the side noted above, the region overlying the target was localized under fluoroscopic visualization and the soft tissues overlying this structure were infiltrated with the anesthetic listed above. With fluoroscopic guidance, a #20 gauge Tuohy needle (unless otherwise noted) was inserted into the epidural space using a paramedian approach. The epidural space was localized utilizing intermittent multiplanar fluoroscopic guidance and loss of resistance technique. After negative aspiration, the contrast noted above was injected into the epidural space and the flow of contrast was observed, confirming epidural spread without evidence of intravascular or intrathecal spread. Multi-planar radiographs were obtained for documentation purposes. A test dose of lidocaine was injected into the above noted epidural space, and the patient was observed for 30-60 seconds. No sensory deficits were reported and normal lower extremity motor function was noted. Subsequently, the injectate as noted above was administered into the level noted above. The patient tolerated the procedure well and was discharged after an appropriate period of observation. If there are any complications, the patient was instructed to call us. The patient is to follow-up with the requesting provider in 2-3 weeks. This note was compiled using voice recognition software and therefore may contain typos. Please contact the author with any questions or concerns.
== END 2025-02-28 09:47 | disposition home or self-care (01) ==
LOC: RAD 08:25
PROVIDERS: PCP Family Medicine; Referring Provider Physical Medicine & Rehabilitation; Visit Provider Physical Medicine & Rehabilitation
DX: M48.061 Spinal stenosis, lumbar region without neurogenic claudication (principal); M54.16 Radiculopathy, lumbar region
CPT/HCPCS: 62323; J1100

== ENCOUNTER → 2025-03-12 11:58 | Outpatient (CLI) | payer MEDICARE, SELFPAY ==
[2022-08-18 11:54] VITALS: BMI 20.5
--- NOTE | 2025-03-12 12:04 | DI.MRI.S_ITS ---
PROCEDURE: MR HEAD/BRAIN WO CON INDICATIONS: Parkinsons TECHNIQUE: Non-contrast axial T1 spin echo, axial T2 fast spin echo, sagittal and axial FLAIR, coronal T2 fast spin echo, axial gradient echo, axial diffusion and ADC through the brain. COMPARISON: None. FINDINGS: Image quality: Excellent. CSF spaces: Ventricles appear symmetric in size and shape. Basal cisterns are patent. No extra-axial fluid collections. Brain: No intracranial bleeds or mass effects. There is cerebral volume loss for age. There are periventricular and deep white matter chronic small vessel ischemic changes. Brainstem appears normal. Diffusion-weighted images show no acute infarct. No chronic ischemic insults. Normal intravascular flow voids are present. Skull and face: Calvarial bone marrow is normal in signal. Orbits are normal. Sinuses: Sinuses and mastoids are clear. IMPRESSION: 1. No acute process. No recent infarct. 2. Volume loss and small vessel ischemic disease. Dictated by: Thais Hogan M.D. on 03/12/2025 at 12:45 Approved by: Thais Hogan M.D. on 03/12/2025 at 12:47
== END ==
PROVIDERS: PCP Family Medicine; Referring Provider Student in an Organized Health Care Education/Training Program; Visit Provider Student in an Organized Health Care Education/Training Program
DX: G20.C Parkinsonism, unspecified (principal); I67.89 Other cerebrovascular disease
CPT/HCPCS: 70551